=== PATIENT | male | born 1955 | race Caucasian/White ===

== ENCOUNTER 2016-12-02 17:10 | Emergency (ER) | payer OTHER ==
[2016-12-02 17:13] VITALS: RESP 18
[2016-12-02] MEDS ORDERED: ONDANSETRON 4 MG/2 ML VIAL IVP STA (19:07)
[2016-12-02] MEDS ORDERED: SODIUM CHLORIDE 0.9% 1,000 ML IV STA ×2 (19:07)
--- NOTE | 2016-12-02 19:11 | ED ---
General Adult HPI - General Chief complaint: Nausea/Vomiting/Diarrhea Stated complaint: fever, diarrhea x 3 weeks Time Seen by Provider: 12/02/16 19:01 Source: patient, RN notes reviewed Mode of arrival: ambulatory Limitations: no limitations - History of Present Illness Initial comments: Patient is 7-year-old male who presents emergency room today with chief complaint of diarrhea 3 weeks. He does admit that symptoms started 3 weeks ago while he was in [place]. States that he's been having diarrhea back and forth. He states last night felt that his abdomen was more distended. States he had increased gas. She is still passing flatulence. Patient does admit that he's noticed blood on the toilet paper and a few drops in the toilet on and off over the last 3 weeks. He does admit to increased abdominal cramping pain which is somewhat improved at this time. Admits to Nausea. He denies any complaints. Patient denies any recent fever, chills, shortness of breath, chest pain, back pain, vomiting, numbness or tingling, dysuria or hematuria, constipation, headaches or visual changes, or any other complaints. - Related Data Home Medications Medication Instructions Recorded Confirmed Losartan [Cozaar] 50 mg PO DAILY 12/02/16 12/02/16 Previous Rx's Medication Instructions Recorded Ciprofloxacin HCl [Cipro] 500 mg PO Q12HR #20 day 12/02/16 Allergies Allergy/AdvReac Type Severity Reaction Status Date / Time No Known Allergies Allergy Verified 12/02/16 19:33 Review of Systems ROS Statement: Those systems with pertinent positive or pertinent negative responses have been documented in the HPI. ROS Other: All systems not noted in ROS Statement are negative. Past Medical History Past Medical History: Hypertension History of Any Multi-Drug Resistant Organisms: None Reported Past Surgical History: Joint Replacement, Orthopedic Surgery Additional Past Surgical History / Comment(s): Bilateral partial knee replacement; Bilateral shoulder Past Psychological History: No Psychological Hx Reported Smoking Status: Former smoker Past Alcohol Use History: Heavy Past Drug Use History: None Reported General Exam - General Exam Comments Initial Comments: General: The patient is awake and alert, in no distress, and does not appear acutely ill. Eye: Pupils are equal, round and reactive to light, extra-ocular movements are intact. No nystagmus. There is normal conjunctiva bilaterally. No signs of icterus. Ears, nose, mouth and throat: There are moist mucous membranes and no oral lesions. Neck: The neck is supple, there is no tenderness or JVD. Cardiovascular: There is a regular rate and rhythm. No murmur, rub or gallop is appreciated. Respiratory: Lungs are clear to auscultation, respirations are non-labored, breath sounds are equal. No wheezes, stridor, rales, or rhonchi. Gastrointestinal: Soft, non-distended, non-tender abdomen without masses or organomegaly noted. There is no rebound or guarding present. No CVA tenderness. Bowel sounds are unremarkable. Musculoskeletal: Normal ROM, no tenderness. Strength 5/5. Sensation intact. Pulses equal bilaterally 2+. Neurological: A&O x 3. CN II-XII intact, There are no obvious motor or sensory deficits. Coordination appears grossly intact. Speech is normal. Skin: Skin is warm and dry and no rashes or lesions are noted. Psychiatric: Cooperative, appropriate mood & affect, normal judgment. Limitations: no limitations Course Vital Signs 12/02/16 12/02/16 17:11 19:23 Temperature 100.5 F H 100.7 F H Pulse Rate 85 70 Respiratory 18 18 Rate Blood Pressure 142/80 142/82 O2 Sat by Pulse 97 96 Oximetry Medical Decision Making - Medical Decision Making Patient CT reviewed and shows redemonstration of scattered air-fluid levels throughout the nondilated bowel compatible with a provided history of diarrhea. There is no evidence of obstruction. No surrounding inflammatory changes are seen. 2. Mild retroperitoneal adenopathy, which is nonspecific. Consideration would be given for testicular ultrasound, correlation with lab values and consideration for short-term follow-up as read by radiologist Dr. Mueller. Patient's labs reviewed unremarkable. Cultures of the stool currently pending. Patient will be covered for traveler's diarrhea with Cipro. Patient is advised short follow-up and further evaluation possible STD ultrasound. Advised follow-up family doctor this coming week over the next 2-4 days. Advised return here to the emergency room for any symptoms increase or worsen or for any other concerns. Patient states understanding and is in agreement. - Lab Data Result diagrams: 12/02/16 19:23 12/02/16 19:23 Lab Results 12/02/16 12/02/16 12/02/16 Range/Units 19:23 19:23 19:23 WBC 6.6 (3.8-10.6) k/uL RBC 4.79 (4.30-5.90) m/uL Hgb 14.7 (13.0-17.5) gm/dL Hct 44.1 (39.0-53.0) % MCV 92.1 (80.0-100.0) fL MCH 30.6 (25.0-35.0) pg MCHC 33.2 (31.0-37.0) g/dL RDW 12.3 (11.5-15.5) % Plt Count 219 (150-450) k/uL Neutrophils % 80 % Lymphocytes % 11 % Monocytes % 6 % Eosinophils % 2 % Basophils % 0 % Neutrophils # 5.3 (1.3-7.7) k/uL Lymphocytes # 0.7 L (1.0-4.8) k/uL Monocytes # 0.4 (0-1.0) k/uL Eosinophils # 0.1 (0-0.7) k/uL Basophils # 0.0 (0-0.2) k/uL PT (9.0-12.0) sec INR (<1.1) APTT (22.0-30.0) sec Sodium 139 (137-145) mmol/L Potassium 4.4 (3.5-5.1) mmol/L Chloride 102 (98-107) mmol/L Carbon Dioxide 26 (22-30) mmol/L Anion Gap 11 mmol/L BUN 19 (9-20) mg/dL Creatinine 0.95 (0.66-1.25) mg/dL Est GFR (MDRD) Af Amer >60 (>60 ml/min/1.73 sqM) Est GFR (MDRD) Non-Af >60 (>60 ml/min/1.73 sqM) Glucose 98 (74-99) mg/dL Plasma Lactic Acid Vu 1.0 (0.7-2.0) mmol/L Calcium 9.2 (8.4-10.2) mg/dL Total Bilirubin 0.9 (0.2-1.3) mg/dL AST 21 (17-59) U/L ALT 34 (21-72) U/L Alkaline Phosphatase 94 (38-126) U/L Total Protein 6.9 (6.3-8.2) g/dL Albumin 4.0 (3.5-5.0) g/dL Amylase 43 (30-110) U/L Lipase 38 (23-300) U/L 12/02/16 Range/Units 19:23 WBC (3.8-10.6) k/uL RBC (4.30-5.90) m/uL Hgb (13.0-17.5) gm/dL Hct (39.0-53.0) % MCV (80.0-100.0) fL MCH (25.0-35.0) pg MCHC (31.0-37.0) g/dL RDW (11.5-15.5) % Plt Count (150-450) k/uL Neutrophils % % Lymphocytes % % Monocytes % % Eosinophils % % Basophils % % Neutrophils # (1.3-7.7) k/uL Lymphocytes # (1.0-4.8) k/uL Monocytes # (0-1.0) k/uL Eosinophils # (0-0.7) k/uL Basophils # (0-0.2) k/uL PT 10.2 (9.0-12.0) sec INR 1.0 (<1.1) APTT 24.0 (22.0-30.0) sec Sodium (137-145) mmol/L Potassium (3.5-5.1) mmol/L Chloride (98-107) mmol/L Carbon Dioxide (22-30) mmol/L Anion Gap mmol/L BUN (9-20) mg/dL Creatinine (0.66-1.25) mg/dL Est GFR (MDRD) Af Amer (>60 ml/min/1.73 sqM) Est GFR (MDRD) Non-Af (>60 ml/min/1.73 sqM) Glucose (74-99) mg/dL Plasma Lactic Acid Vu (0.7-2.0) mmol/L Calcium (8.4-10.2) mg/dL Total Bilirubin (0.2-1.3) mg/dL AST (17-59) U/L ALT (21-72) U/L Alkaline Phosphatase (38-126) U/L Total Protein (6.3-8.2) g/dL Albumin (3.5-5.0) g/dL Amylase (30-110) U/L Lipase (23-300) U/L Disposition Clinical Impression: Travelers' diarrhea Disposition: HOME SELF-CARE Condition: Good Instructions: Traveler's Diarrhea (ED) Additional Instructions: Please follow-up the family doctor and discuss options of ultrasound. Please use antibiotic as prescribed. Please return to emergency room if any symptoms increase or worsen or for any other concerns. Prescriptions: Ciprofloxacin HCl [Cipro] 500 mg PO Q12HR #20 day Time of Disposition: 21:10
[2016-12-02 19:45] LABS: Basophils % (A) 0 %; CH 31.3; CHCM 34.2; Eosinophils # (A) 0.1 k/uL (0-0.7); Eosinophils % (A) 2 %; HCT 44.1 % (39.0-53.0); HDW 2.35; HGB 14.7 gm/dL (13.0-17.5); Luc # (Auto) 0.11; Luc % (Auto) 2; Lymphocytes # (A) 0.7 k/uL (1.0-4.8); Lymphocytes % (A) 11 %; MCH 30.6 pg (25.0-35.0); MCHC 33.2 g/dL (31.0-37.0); MCV 92.1 fL (80.0-100.0); Mean Platelet Volume 6.2; Monocytes # (A) 0.4 k/uL (0-1.0); Monocytes % (A) 6 %; Neutrophils # (A) 5.3 k/uL (1.3-7.7); Neutrophils % (A) 80 %; Prothrombin Time 10.2 sec (9.0-12.0); RBC 4.79 m/uL (4.30-5.90); RDW 12.3 % (11.5-15.5); WBC 6.6 k/uL (3.8-10.6); WBC (Perox) 6.74
--- NOTE | 2016-12-02 19:59 | XR ---
EXAMINATION TYPE: XR KUB DATE OF EXAM: 12/02/2016 7:39 PM COMPARISON: NONE HISTORY: Abdominal pain and diarrhea TECHNIQUE: Single frontal upright radiograph was obtained. FINDINGS: Multiple air-fluid levels are seen within nondilated bowel compatible with a history of flu id malabsorption and diarrhea. There is no evidence of organomegaly. Osseous structures appear intact . No abnormal calcifications are seen within the abdomen. No evidence of pneumoperitoneum. IMPRESSION: Nonobstructive bowel gas pattern. Air-fluid levels within nondilated bowel are compatible with a history of fluid malabsorption and diarrhea.
[2016-12-02] MEDS ORDERED: RX INFO: IV CONTRAST WAS GIVEN 1 EACH MISC MISCELLANE PRN (20:11)
[2016-12-02 20:34] LABS: ALT 34 U/L (21-72); AST 21 U/L (17-59); Alkaline Phosphatase 94 U/L (38-126); Amylase 43 U/L (30-110); Anion Gap 11 mmol/L; Blood Urea Nitrogen 19 mg/dL (9-20); Calcium 9.2 mg/dL (8.4-10.2); Carbon Dioxide 26 mmol/L (22-30); Chloride 102 mmol/L (98-107); Glucose 98 mg/dL (74-99); Non-African American GFR(MDRD) >60 (>60 ml/min/1.73 sqM); Potassium 4.4 mmol/L (3.5-5.1); Sodium 139 mmol/L (137-145); Total Bilirubin 0.9 mg/dL (0.2-1.3); Total Protein 6.9 g/dL (6.3-8.2)
--- NOTE | 2016-12-02 20:49 | CT ---
EXAMINATION TYPE: CT abdomen pelvis w con DATE OF EXAM: 12/02/2016 8:33 PM COMPARISON: NONE HISTORY: Diarrhea and fever on and off x [address] DLP: 1217.00 mGycm Automated exposure control for dose reduction was used. TECHNIQUE: Helical acquisition of images was performed from the lung bases through the pelvis. CONTRAST: Performed without Oral Contrast and with IV Contrast, patient injected with 100 mL of Omnipaque 300. FINDINGS: LUNG BASES: Multifocal subsegmental atelectasis. No focal consolidation. LIVER/GB: No significant abnormality is appreciated. PANCREAS: No significant abnormality is seen. SPLEEN: Normal morphology and enhancement. ADRENALS: No significant abnormality is seen. KIDNEYS: No significant abnormality is seen. RETROPERITONEAL ADENOPATHY: Multiple enlarged and prominent retroperitoneal periaortic lymph nodes a re present the largest of which measures 1.2 cm (paracaval and image 190). No enlarged mesenteric lym ph nodes, inguinal lymph nodes, or superficial inguinal lymph nodes are appreciated. REPRODUCTIVE ORGANS: Prostate gland is heterogenous and mildly enlarged measuring 4.9 cm in transvers e dimension. URINARY BLADDER: Partially distended with urachal remnant visualized. Otherwise unremarkable. PELVIC ADENOPATHY: None. OSSEOUS STRUCTURES: Degenerative changes of the visualized thoracolumbar and lumbosacral spine are s een as well as few scattered bone islands. Degenerative changes are also appreciated of the femoral a cetabular joints demonstrated as subchondral cysts and joint space narrowing. Probable additional tigist e and is seen of the pedicle of the L5 vertebral body on the right. BOWEL: Scattered air-fluid levels are seen within nondistended and nondilated bowel, again compatibl e with the provided history of diarrhea for 3 weeks. Appendix is within normal limits of size and con tains luminal air. No evidence of bowel obstruction or pericolonic fat stranding. OTHER: IMPRESSION 1. REDEMONSTRATION OF SCATTERED AIR-FLUID LEVELS THROUGHOUT THE NONDILATED BOWEL COMPATIBLE WITH THE PROVIDED HISTORY OF DIARRHEA. THERE IS NO EVIDENCE OF OBSTRUCTION. NO SURROUNDING INFLAMMATORY CHANGE S ARE SEEN. 2. MILD RETROPERITONEAL ADENOPATHY, WHICH IS NONSPECIFIC. CONSIDERATION SHOULD BE GIVEN FOR TESTICULA R ULTRASOUND, CORRELATION WITH LABORATORY VALUES, AND CONSIDERATION FOR SHORT-TERM FOLLOW-UP.
[2016-12-02 21:12] LABS: Appearance,Urine Clear (Clear); Bilirubin,Urine Negative (Negative); Glucose,Urine (UA) Negative (Negative); Ketones,Urine Negative (Negative); Leukocyte Esterase,Urine Negative (Negative); Nitrite,Urine Negative (Negative); PH, Urine 5.5 (5.0-8.0); Protein,Urine Trace (Negative); UA Billing (MACRO vs. MICRO) CHEM; Urobilinogen,Urine <2.0 mg/dL (<2.0)
[2016-12-02 21:26] VITALS: BP 146/74; PULSE 67; TEMP 98.2
[2016-12-09 19:56] LABS: Cryptosporidium parvum Not detected (Not detected); Isospora belli Not detected (Not detected); Microsporidium Not detected (Not detected); Routine Ova and Parasites Not detected
== END 2016-12-02 21:32 | disposition home or self-care (01) ==
LOC: EC 17:10
DX: R19.7 Diarrhea, unspecified (principal); R59.9 Enlarged lymph nodes, unspecified; I10 Essential (primary) hypertension; Z87.891 Personal history of nicotine dependence; Z79.899 Other long term (current) drug therapy
CPT/HCPCS: 36415; 80053; 82150; 83605; 83690; 85025; 85610; 85730; 82272; 81003; 87324; 87177; 87207; 87209; 87045; 89055; 87046; 74000; 74177; 99284; 96374; 96361 ×2; J2405; Q9967

== ENCOUNTER → 2019-04-14 | Outpatient (CLI) | payer OTHER ==
[2019-04-14 07:19] LABS: Basophils # (A) 0.1 k/uL (0-0.2); Basophils % (A) 1 %; Eosinophils # (A) 0.7 k/uL (0-0.7); Eosinophils % (A) 9 %; HCT 43.4 % (39.0-53.0); HGB 14.6 gm/dL (13.0-17.5); Lymphocytes # (A) 2.2 k/uL (1.0-4.8); Lymphocytes % (A) 29 %; MCH 31.7 pg (25.0-35.0); MCHC 33.6 g/dL (31.0-37.0); MCV 94.5 fL (80.0-100.0); Mean Platelet Volume 6.8; Monocytes # (A) 0.4 k/uL (0-1.0); Monocytes % (A) 6 %; Neutrophils # (A) 4.2 k/uL (1.3-7.7); Neutrophils % (A) 54 %; Platelet Count 245 k/uL (150-450); RBC 4.59 m/uL (4.30-5.90); RDW 14.5 % (11.5-15.5); WBC 7.7 k/uL (3.8-10.6)
[2019-04-14 11:30] LABS: African American GFR (CKD) 105.7 (60.0-200.0); Albumin 4.1 g/dL (3.80-4.90); Albumin/Globulin Ratio 1.95 (1.60-3.17); Anion Gap 3.5 mmol/L (4.00-12.00); BUN/Creat Ratio 16.67 Ratio (12.00-20.00); Calcium 9.2 mg/dL (8.7-10.3); Carbon Dioxide 29.5 mmol/L (21.6-31.8); Chol/HDL Ratio 2.69; Globulin 2.1 g/dL (1.6-3.3); Non-African American GFR(CKD) 91.2 (60.0-200.0); Potassium 5.1 mmol/L (3.5-5.5); Total Bilirubin 0.5 mg/dL (0.3-1.2); Total Protein 6.2 g/dL (6.2-8.2)
[2019-04-14 11:37] LABS: Hepatitis B Core IgM Non-Reactive (Non-Reactive); Hepatitis B Surface Antigen Non-Reactive (Non-Reactive); Hepatitis C IgG Antibody Non-Reactive (Non-Reactive)
[2019-04-14 11:38] LABS: T4, Free (Free Thyroxine) 1.2 ng/dL (0.80-1.80)
== END | disposition home or self-care (01) ==
LOC: LABWHC1 06:51
PROVIDERS: ATTEND Internal Medicine
DX: Z00.00 Encounter for general adult medical examination without abnormal findings (principal); E78.5 Hyperlipidemia, unspecified; I10 Essential (primary) hypertension
CPT/HCPCS: 36415; 80053; 80061; 84439; 84443; 85025; 86705; 86803; 87340

== ENCOUNTER → 2019-04-30 | Outpatient (CLI) | payer OTHER ==
--- NOTE | 2019-04-30 10:37 | CT ---
EXAMINATION TYPE: CT abdomen pelvis w con DATE OF EXAM: 04/30/2019 COMPARISON: 12/02/2016 HISTORY: 63-year-old male Enlarged lymph nodes TECHNIQUE: Contiguous axial scanning of the abdomen and pelvis following administration of 100 ml Iso alexx 300 IV contrast. Delayed images through the kidneys and coronal/sagittal reconstructions perform ed. CT DLP: 1096.8 mGycm Automated exposure control for dose reduction was used. FINDINGS: The heart is upper limits of normal in size without pericardial effusion. Coronary vessel calcificati ons are present. Strandy atelectasis inferior lingular. No pleural effusion. No focal liver lesion or biliary ductal dilatation. Portal venous system is patent. Gallbladder mildly hydropic and 4.0 cm wide without surrounding inflammatory change. Adrenal glands, kidneys, spleen, and pancreas appear within normal limits. No dilated small bowel, free fluid, or free air. Oral contrast progressed to the distal transverse colon. Sigmoid diverticulosis without pericolonic i nflammatory change. Normal appendix. Scattered borderline and mildly enlarged retroperitoneal lymph nodes. These measure up to 7 mm in the aortocaval region, 7 mm upper left periaortic region, 8 mm lower left periaortic region, 9 mm left c ommon iliac chain, 1 cm retrocaval region. These are unchanged. Also unchanged 7 mm mid mesenteric lymph node and additional scattered prominent but nonenlarged mese nteric lymph nodes throughout. Bladder incompletely distended. Prostate gland measures 5.1 cm wide. No abnormal fluid collection in the pelvis. External iliac chain lymph nodes measure up to 8 mm. Bones: Mild degenerative changes at the hips. Facet arthropathy lower lumbar spine. Endplate spondylo sis lower thoracic spine. IMPRESSION: 1. BORDERLINE AND MILDLY ENLARGED RETROPERITONEAL LYMPH NODES MEASURING UP TO 1 CM ARE STABLE BACK TO 2017 SUGGESTING A CHRONIC POSTINFLAMMATORY ETIOLOGY. AN INDOLENT NEOPLASTIC PROCESS IS CONSIDERED LE SS LIKELY GIVEN OVER 2 YEARS OF STABILITY. CONSIDER ANNUAL SURVEILLANCE. 2. MILDLY HYDROPIC GALLBLADDER AT 4 CM WIDE LIKELY DUE TO FASTING STATE. CLINICALLY CORRELATE. IF RIG HT UPPER QUADRANT PAIN OR CONCERN FOR EARLY ACUTE CHOLECYSTITIS, FOLLOW-UP ULTRASOUND OR HIDA SCAN. 3. MILD SIGMOID DIVERTICULOSIS.
== END | disposition home or self-care (01) ==
LOC: RADCTMAIN 07:07
PROVIDERS: ATTEND Internal Medicine Critical Care Medicine
DX: K57.30 Diverticulosis of large intestine without perforation or abscess without bleeding (principal); R59.0 Localized enlarged lymph nodes
CPT/HCPCS: 74177; Q9967

== ENCOUNTER 2021-05-10 18:59 | Emergency (ER) | payer BC ==
[2021-05-10 19:33] VITALS: BP 165/81; PULSE 63; RESP 18; TEMP 98.5
--- NOTE | 2021-05-10 20:14 | ED ---
Lower Extremity Injury HPI - General Chief Complaint: Extremity Injury, Lower Stated Complaint: lt knee infection Time Seen by Provider: 05/10/21 19:56 Source: patient, RN notes reviewed Mode of arrival: ambulatory Limitations: no limitations - History of Present Illness Initial Comments: 65-year-old white male, alert and oriented 4 and well-appearing, presents to the emergency room with left knee tenderness. Patient states that he noticed a small, what he thought was a pimple on the left knee and tried to squeeze it. It is tender with increased redness and swelling. He denies any fevers nausea or vomiting. He denies any injuries. He states that his tetanus shot is up-to-date. MD Complaint: other (Left knee tenderness) -: days(s) (1) Type of Injury: unknown Severity scale (1-10): 4 Worsens With: palpation - Related Data Home Medications Medication Instructions Recorded Confirmed Losartan [Cozaar] 50 mg PO DAILY 12/02/16 12/02/16 Previous Rx's Medication Instructions Recorded Ciprofloxacin HCl [Cipro] 500 mg PO Q12HR #20 day 12/02/16 Cephalexin [Keflex] 500 mg PO Q6HR 7 Days #28 cap 05/10/21 Allergies Allergy/AdvReac Type Severity Reaction Status Date / Time No Known Allergies Allergy Verified 05/10/21 19:33 Review of Systems ROS Statement: Those systems with pertinent positive or pertinent negative responses have been documented in the HPI. ROS Other: All systems not noted in ROS Statement are negative. Past Medical History Past Medical History: Hypertension History of Any Multi-Drug Resistant Organisms: None Reported Past Surgical History: Joint Replacement, Orthopedic Surgery Additional Past Surgical History / Comment(s): Bilateral partial knee replacement; Bilateral shoulder Past Psychological History: No Psychological Hx Reported Smoking Status: Smoker, current status unknown Past Alcohol Use History: Heavy Past Drug Use History: None Reported General Exam Limitations: no limitations General appearance: alert, in no apparent distress Head exam: Present: atraumatic, normocephalic, normal inspection Eye exam: Present: normal appearance, PERRL, EOMI. Absent: scleral icterus, c onjunctival injection, periorbital swelling Neck exam: Present: normal inspection, full ROM. Absent: tenderness, meningismus, lymphadenopathy Respiratory exam: Present: normal lung sounds bilaterally. Absent: respiratory distress, wheezes, rales, rhonchi, stridor Cardiovascular Exam: Present: regular rate, normal rhythm, normal heart sounds. Absent: systolic murmur, diastolic murmur, rubs, gallop, clicks GI/Abdominal exam: Present: soft, normal bowel sounds. Absent: distended, tenderness, guarding, rebound, rigid Left Knee exam: Present: full ROM, tenderness, erythema (Approximately 4 cm circular area of erythema lateral patella), full knee extension Neurovascular tendon exam: Present: no vascular compromise. Absent: abnormal cap refill, extremity cold to touch, pallor Back exam: Present: full ROM. Absent: tenderness, CVA tenderness (R), CVA tenderness (L) Neurological exam: Present: alert, oriented X3, CN II-XII intact Psychiatric exam: Present: normal affect, normal mood Skin exam: Present: warm, dry, intact, normal color. Absent: rash Course Vital Signs 05/10/21 19:29 Temperature 98.5 F Pulse Rate 63 Respiratory 18 Rate Blood Pressure 165/81 O2 Sat by Pulse 98 Oximetry Medical Decision Making - Medical Decision Making Patient has a 4 cm circular area of erythema to the left lateral patella that developed today. He states it looked like a pimple that he tried to squeeze and became erythematous and tender to touch. He'll be treated with Keflex and directed to follow up with his primary care doctor. He has full extension of the knee. Denies any trauma. He states his tetanus shot is up-to-date. He denies any systemic signs including nausea vomiting diarrhea or fevers. Disposition Clinical Impression: Cellulitis Disposition: HOME SELF-CARE Condition: Good Instructions (If sedation given, give patient instructions): Cellulitis (ED) Additional Instructions: Take antibiotics as prescribed and follow-up with your primary care doctor next week. Return to the emergency room with any new or worsening symptoms including increased pain, fevers or nausea and vomiting. Prescriptions: Cephalexin [Keflex] 500 mg PO Q6HR 7 Days #28 cap Is patient prescribed a controlled substance at d/c from ED?: No Referrals: Bruce Collier MD [Primary Care Provider] - 1-2 days Time of Disposition: 20:14
== END 2021-05-10 20:25 | disposition home or self-care (01) ==
LOC: EC 18:59
DX: L03.116 Cellulitis of left lower limb (principal); I10 Essential (primary) hypertension; F17.200 Nicotine dependence, unspecified, uncomplicated; Z79.899 Other long term (current) drug therapy
CPT/HCPCS: 99283

== ENCOUNTER → 2021-05-19 | Outpatient (CLI) | payer BC ==
[2021-05-19 15:03] LABS: Basophils # (A) 0.06 X 10*3/uL (0.00-0.10); Basophils % (A) 0.7 %; HGB 13.9 g/dL (13.0-17.0); Lymphocytes # (A) 1.79 X 10*3/uL (0.90-5.00); Lymphocytes % (A) 21.2 %; MCH 31.9 pg (27.0-32.0); MCHC 33.1 g/dL (32.0-37.0); MCV 96.3 fL (80.0-97.0); Mean Platelet Volume 9.1 fL (9.5-12.2); Monocytes # (A) 0.62 X 10*3/uL (0.20-1.00); Monocytes % (A) 7.3 %; Neutrophils # (A) 4.84 X 10*3/uL (1.80-7.70); Neutrophils % (A) 57.4 %; Platelet Count 273 X 10*3/uL (140-440); RBC 4.36 X 10*6/uL (4.40-5.60); RDW 11.8 % (11.5-14.5); WBC 8.44 X 10*3/uL (4.50-10.00)
[2021-05-20 02:45] LABS: African American GFR (CKD) 104.2 (60.0-200.0); Albumin 4.4 g/dL (3.80-4.90); Anion Gap 10.5 mmol/L (4.00-12.00); BUN/Creat Ratio 18.89 Ratio (12.00-20.00); Calcium 9.4 mg/dL (8.7-10.3); Carbon Dioxide 24.5 mmol/L (21.6-31.8); Chol/HDL Ratio 2.25; Globulin 2.2 g/dL (1.6-3.3); LDL Cholesterol,Calculated 71.4 mg/dL (0.0-131.0); Non-African American GFR(CKD) 89.9 (60.0-200.0); Potassium 4.8 mmol/L (3.5-5.5); Total Bilirubin 0.2 mg/dL (0.3-1.2); Total Protein 6.6 g/dL (6.2-8.2); VLDL Calculation 18.6 mg/dL (5.00-40.00)
[2021-05-20 02:53] LABS: Prostate Specific Antigen 1.4 ng/mL (0.0-4.5); T4, Free (Free Thyroxine) 1.2 ng/dL (0.80-1.80)
== END | disposition home or self-care (01) ==
LOC: LABWHC1 08:34
PROVIDERS: ATTEND Internal Medicine
DX: Z00.00 Encounter for general adult medical examination without abnormal findings (principal); E78.5 Hyperlipidemia, unspecified
CPT/HCPCS: 36415; 80053; 80061; 84153; 84439; 84443; 85025

== ENCOUNTER → 2021-06-03 | Outpatient (CLI) | payer BC | END | disposition home or self-care (01) | LOC: LABMAIN 12:42 | PROVIDERS: ATTEND Emergency Medicine | DX: Z20.822 Contact with and (suspected) exposure to COVID-19 (principal) | CPT/HCPCS: 87636 ==

== ENCOUNTER → 2021-06-29 | Outpatient (CLI) | payer BC ==
--- NOTE | 2021-06-30 05:32 | MR ---
EXAMINATION TYPE: MR shoulder RT wo con DATE OF EXAM: 06/29/2021 COMPARISON: None HISTORY: Right shoulder pain x 3 mos. There is narrowing of the glenohumeral joint space. There is hypertrophic spurring at the AC joint. T here is mild subacromial impingement. There is mild thickening and increased signal in the supraspina tus tendon. There are small areas of full-thickness tear in the supraspinatus tendon. There is a smal l subdeltoid effusion. There is shoulder joint effusion. There are degenerative cysts in the humeral head at the greater tuberosity. There is large spur on the inferior humeral head measuring 23 x 6 mm. There is some thickening and increased signal in the subscapularis tendon. The biceps tendon is intac t. There is no evidence of a fracture. IMPRESSION: Small full-thickness tear of the supraspinatus tendon. Shoulder joint effusion and subdeltoid effusio n. Partial tear of the subscapularis tendon. 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 No evidence of retraction of the supraspinatus tendon. Moderate hypertrophic spur ring at the AC joint
== END | disposition home or self-care (01) ==
LOC: RADMRIMAIN 20:55
PROVIDERS: ATTEND Orthopaedic Surgery
DX: M75.121 Complete rotator cuff tear or rupture of right shoulder, not specified as traumatic (principal); M75.111 Incomplete rotator cuff tear or rupture of right shoulder, not specified as traumatic; M19.011 Primary osteoarthritis, right shoulder

== ENCOUNTER 2021-08-07 15:43 | Emergency (ER) | payer BC ==
[2021-08-07 16:28] VITALS: RESP 18
[2021-08-07] MEDS ORDERED: KETOROLAC 30 MG/ML 1 ML VIAL IVP STA (16:46)
[2021-08-07] MEDS ORDERED: SODIUM CHLORIDE 0.9% 1,000 ML IV STA (16:46)
[2021-08-07] MEDS ORDERED: ASPIRIN 81 MG PO STA (16:46)
--- NOTE | 2021-08-07 16:56 | ED ---
General Adult HPI - General Chief complaint: Shortness of Breath Stated complaint: KIANNA,Post Surgical,Confusion Time Seen by Provider: 08/07/21 16:34 Source: patient, RN notes reviewed, old records reviewed Mode of arrival: ambulatory Limitations: no limitations - History of Present Illness Initial comments: I evaluated the patient when he was placed in a room. Patient is a 65-year-old male who presents emergency Department complaining of shortness of breath. Medical history included hypertension. Patient states it is been on oxycodone since a right shoulder surgery last week. He was constipated, but had a bowel movement yesterday. He states that prior to the bowel movement, he was feeling extremely bloated which resolved after bowel movement. However since yesterday, he is having some mild shortness of breath, but he thinks is related to e xertion. He is complaining of a nonspecific chest discomfort that he is having a difficult time explaining and describing type and location. Also complains of mild epigastric abdominal discomfort. He denies any nausea or vomiting. Denies any diarrhea. Denies any blood in his stool. Denies any history of blood clots in himself or family members. He has been lying around more than atypically d oes secondary to his recent shoulder surgery. He isn't sure if his symptoms are related to the medication he is on, however states of a concern which is why presents emergency department today. Symptoms started last night. Family states is abdominal discomfort is resolved, I also discussed complaining of some mild pleuritic chest discomfort on deep inspiration. Patient was vaccinated for COVID-19 with [employer]. He denies any fevers, productive cough. Has no other acute complaints at this time. His only other complaint is a "foggy" sensation he gets when he takes his oxycodone that resolves as it wears off. He thinks it is likely related to the medication. Currently does not feel this way. - Related Data Home Medications Medication Instructions Recorded Confirmed Losartan [Cozaar] 50 mg PO DAILY 12/02/16 08/07/21 Latanoprost [Xalatan 0.005%] 1 drop BOTH EYES HS 08/07/21 08/07/21 oxyCODONE-APAP 5-325MG [Percocet 1 tab PO Q4H PRN 08/07/21 08/07/21 5-325 mg] Allergies Allergy/AdvReac Type Severity Reaction Status Date / Time No Known Allergies Allergy Verified 08/07/21 17:46 Review of Systems ROS Statement: Those systems with pertinent positive or pertinent negative responses have been documented in the HPI. Review of Systems: CONST: Denies fever EYES: Denies blurry vision ENT: Denies nasal congestion C/V: Endorses chest pain RESP: Endorses mild shortness of breath GI: Denies abdominal pain : Denies dysuria SKIN: Denies rash. MSK: Denies joint pain. NEURO: Denies headache ROS Other: All systems not noted in ROS Statement are negative. Past Medical History Past Medical History: Hypertension History of Any Multi-Drug Resistant Organisms: None Reported Past Surgical History: Joint Replacement, Orthopedic Surgery Additional Past Surgical History / Comment(s): Bilateral partial knee replacement; Bilateral shoulder Past Psychological History: No Psychological Hx Reported Smoking Status: Smoker, current status unknown Past Alcohol Use History: Heavy Past Drug Use History: None Reported General Exam - General Exam Comments Initial Comments: General: Appears in no acute distress. HEAD: Normal with no signs of head trauma. EYES: PERRLA, EOMI, conjunctiva normal, no discharge. Pupils are 3 mm and equal bilaterally. ENT: Hearing grossly intact, normal oropharynx. RESPIRATORY: Clear breath sounds bilaterally. No wheezes, rales, or rhonchi. C/V: Regular rate and rhythm. S1 and S2 auscultated, no edema, peripheral pulses 2+ and intact throughout. ABD: Abd is soft, nontender, nondistended EXT: Normal range of motion, no obvious deformity SKIN: No rashes or lesions observed on exposed skin. NEURO: Alert and oriented x 4. Cranial nerves II-XII intact. No focal sensory or strength deficits. Limitations: no limitations Course Vital Signs 08/07/21 08/07/21 16:20 16:28 Temperature 99.2 F Pulse Rate 74 Respiratory 18 18 Rate Blood Pressure 138/83 O2 Sat by Pulse 97 Oximetry Medical Decision Making - Medical Decision Making Based on the patient's presentation and physical exam, I'm concerned for possible cardiopulmonary cause for his current symptoms. Patient does not PERC out. Well's score for PE is low at 1.5. Therefore we will obtain a cardiac workup including EKG, troponin, basic labs, abdominal labs, d-dimer. EKG, chest x-ray, abdominal x-ray will also be obtained. Patient was in agreement this plan. He will be administered Toradol for analgesia as well as aspirin. Patient will be placed on a monitoring specialist. COVID-19 swab also be obtained. He was in agreement with this plan. EKG showed no signs of acute ischemia. Chest x-ray showed no acute cardio pulmonary process. Abdominal x-ray showed a nonobstructive bowel gas pattern with stool present. There were trace studies were remarkable for a d-dimer that is within normal limits. Troponin is negative. Covid swab is negative. Remainder of the labs are unremarkable. On reevaluation, patient is feeling improved. Vital signs remained within normal limits and stable. I updated him on the results of his imaging as well as laboratory studies. His symptoms likely are secondary to mild constipation secondary to new oxycodone use. He just started taking stool softeners yesterday, and I recommended to continue using those and offered him an enema which he refuses at this time. I did advise that he can purchase [id number] and he expressed understanding. He already has stool softeners at home. I advised that he try to reduce the use of his opiate medication and possibly spaces out, using ibuprofen and supplemental analgesia. He was in agreement with this plan. At this time I believe that it is safe for him to be discharged home as he does have follow-up with the surgeon on Sunday. He was in agreement this plan. I instructed the patient to follow up with their PCP in the next 3 days. I explained that the patient should return to the emergency department if they experience any worsening symptoms. Strict return precautions were discussed with the patient. The patient expressed understanding of these instructions. I answered all questions that the patient had. The patient was discharged home in good condition with their prescriptions and follow up information. - Lab Data Result diagrams: 08/07/21 17:06 08/07/21 17:06 Lab Results 08/07/21 08/07/21 08/07/21 Range/Units 17:06 17:06 17:06 WBC 10.5 (3.8-10.6) k/uL RBC 4.36 (4.30-5.90) m/uL Hgb 14.3 (13.0-17.5) gm/dL Hct 40.5 (39.0-53.0) % MCV 92.8 (80.0-100.0) fL MCH 32.7 (25.0-35.0) pg MCHC 35.3 (31.0-37.0) g/dL RDW 11.4 L (11.5-15.5) % Plt Count 233 (150-450) k/uL MPV 6.9 Neutrophils % 69 % Lymphocytes % 13 % Monocytes % 8 % Eosinophils % 8 % Basophils % 1 % Neutrophils # 7.2 (1.3-7.7) k/uL Lymphocytes # 1.4 (1.0-4.8) k/uL Monocytes # 0.9 (0-1.0) k/uL Eosinophils # 0.8 H (0-0.7) k/uL Basophils # 0.1 (0-0.2) k/uL PT 9.5 (9.0-12.0) sec INR 0.9 (<1.2) APTT 23.4 (22.0-30.0) sec D-Dimer 0.54 (<0.60) mg/L FEU Sodium 133 L (137-145) mmol/L Potassium 4.6 (3.5-5.1) mmol/L Chloride 97 L (98-107) mmol/L Carbon Dioxide 25 (22-30) mmol/L Anion Gap 11 mmol/L BUN 16 (9-20) mg/dL Creatinine 0.83 (0.66-1.25) mg/dL Est GFR (CKD-EPI)AfAm >90 (>60 ml/min/1.73 sqM) Est GFR (CKD-EPI)NonAf >90 (>60 ml/min/1.73 sqM) Glucose 142 H (74-99) mg/dL Calcium 9.5 (8.4-10.2) mg/dL Magnesium 2.0 (1.6-2.3) mg/dL Total Bilirubin 0.7 (0.2-1.3) mg/dL AST 20 (17-59) U/L ALT 20 (4-49) U/L Alkaline Phosphatase 79 (38-126) U/L Troponin I (0.000-0.034) ng/mL Total Protein 7.0 (6.3-8.2) g/dL Albumin 4.1 (3.5-5.0) g/dL Amylase 57 (30-110) U/L Lipase 48 (23-300) U/L Coronavirus (PCR) (Not Detectd) 08/07/21 08/07/21 Range/Units 17:06 17:06 WBC (3.8-10.6) k/uL RBC (4.30-5.90) m/uL Hgb (13.0-17.5) gm/dL Hct (39.0-53.0) % MCV (80.0-100.0) fL MCH (25.0-35.0) pg MCHC (31.0-37.0) g/dL RDW (11.5-15.5) % Plt Count (150-450) k/uL MPV Neutrophils % % Lymphocytes % % Monocytes % % Eosinophils % % Basophils % % Neutrophils # (1.3-7.7) k/uL Lymphocytes # (1.0-4.8) k/uL Monocytes # (0-1.0) k/uL Eosinophils # (0-0.7) k/uL Basophils # (0-0.2) k/uL PT (9.0-12.0) sec INR (<1.2) APTT (22.0-30.0) sec D-Dimer (<0.60) mg/L FEU Sodium (137-145) mmol/L Potassium (3.5-5.1) mmol/L Chloride (98-107) mmol/L Carbon Dioxide (22-30) mmol/L Anion Gap mmol/L BUN (9-20) mg/dL Creatinine (0.66-1.25) mg/dL Est GFR (CKD-EPI)AfAm (>60 ml/min/1.73 sqM) Est GFR (CKD-EPI)NonAf (>60 ml/min/1.73 sqM) Glucose (74-99) mg/dL Calcium (8.4-10.2) mg/dL Magnesium (1.6-2.3) mg/dL Total Bilirubin (0.2-1.3) mg/dL AST (17-59) U/L ALT (4-49) U/L Alkaline Phosphatase (38-126) U/L Troponin I <0.012 (0.000-0.034) ng/mL Total Protein (6.3-8.2) g/dL Albumin (3.5-5.0) g/dL Amylase (30-110) U/L Lipase (23-300) U/L Coronavirus (PCR) Not Detected (Not Detectd) - EKG Data -: EKG Interpreted by Me EKG Comments: 12-lead Electrocardiogram Interpretation Note EKG was reviewed and interpreted by myself. 12-lead ECG performed at 1653 is interpreted by me as revealing normal sinus rhythm at a rate of 67 beats per minute. [place] is normal. [place] interval is 160 ms, QRS duration is 106 ms, QTc is 420 ms.. There is an isolated mild T-wave inversion in lead III. Q wave is deep and III. There is an S wave present in I. No other ST segment or T-wave abnormalities.. R wave progression across the precordium was satisfactory. By my interpretation this EKG is non-diagnostic for acute ischemia. Disposition Clinical Impression: Constipation, Opiate use Disposition: HOME SELF-CARE Condition: Fair Instructions (If sedation given, give patient instructions): Constipation (ED) Is patient prescribed a controlled substance at d/c from ED?: No Referrals: Bruce Collier MD [Primary Care Provider] - 1-2 days
[2021-08-07 17:35] LABS: INR 0.9 (<1.2); Partial Thromboplastin Time 23.4 sec (22.0-30.0); Prothrombin Time 9.5 sec (9.0-12.0)
--- NOTE | 2021-08-07 17:41 | XR ---
EXAMINATION TYPE: XR abdomen 1V DATE OF EXAM: 08/07/2021 5:26 PM CLINICAL HISTORY: Abdominal discomfort TECHNIQUE: Upright images of the abdomen and pelvis were obtained COMPARISON: 12/02/2016. FINDINGS: Nonobstructive bowel gas pattern. Diffuse large and small bowel gaseous distention without dilatation. No pneumoperitoneum, although there is incomplete visualization of the right hemidiaphrag m. Degenerative changes of the spine. IMPRESSION: Nonobstructive bowel gas pattern.
--- NOTE | 2021-08-07 17:43 | XR ---
EXAMINATION TYPE: XR chest 2V DATE OF EXAM: 08/07/2021 CLINICAL HISTORY: Chest Pain. TECHNIQUE: Frontal and lateral view of the chest. COMPARISON: 08/30/2014 FINDINGS: Patient unable to move right arm due to right shoulder postoperative state, which limits v isualization of the lungs on lateral view. The cardiomediastinal silhouette is within normal limits f or size. Pulmonary vasculature is normal. Minimal left basilar atelectasis. Otherwise no focal air sp jelly opacity. No pleural effusion. No pneumothorax seen. No acute displaced osseous fracture. IMPRESSION: No acute cardiopulmonary process.
[2021-08-07 17:44] LABS: ALT 20 U/L (4-49); AST 20 U/L (17-59); African American GFR (CKD) >90 (>60 ml/min/1.73 sqM); Albumin 4.1 g/dL (3.5-5.0); Alkaline Phosphatase 79 U/L (38-126); Amylase 57 U/L (30-110); Anion Gap 11 mmol/L; Blood Urea Nitrogen 16 mg/dL (9-20); Calcium 9.5 mg/dL (8.4-10.2); Carbon Dioxide 25 mmol/L (22-30); Chloride 97 mmol/L (98-107); Glucose 142 mg/dL (74-99); Lipase 48 U/L (23-300); Non-African American GFR(CKD) >90 (>60 ml/min/1.73 sqM); Potassium 4.6 mmol/L (3.5-5.1); Sodium 133 mmol/L (137-145); Total Bilirubin 0.7 mg/dL (0.2-1.3)
[2021-08-07 17:53] LABS: Basophils # (A) 0.1 k/uL (0-0.2); Basophils % (A) 1 %; Eosinophils # (A) 0.8 k/uL (0-0.7); Eosinophils % (A) 8 %; HCT 40.5 % (39.0-53.0); HGB 14.3 gm/dL (13.0-17.5); Lymphocytes # (A) 1.4 k/uL (1.0-4.8); Lymphocytes % (A) 13 %; MCH 32.7 pg (25.0-35.0); MCHC 35.3 g/dL (31.0-37.0); MCV 92.8 fL (80.0-100.0); Mean Platelet Volume 6.9; Monocytes # (A) 0.9 k/uL (0-1.0); Monocytes % (A) 8 %; Neutrophils # (A) 7.2 k/uL (1.3-7.7); Neutrophils % (A) 69 %; Platelet Count 233 k/uL (150-450); RBC 4.36 m/uL (4.30-5.90); RDW 11.4 % (11.5-15.5); WBC 10.5 k/uL (3.8-10.6)
[2021-08-07 18:57] VITALS: BP 141/75; PULSE 62; TEMP 98
== END 2021-08-07 18:56 | disposition home or self-care (01) ==
LOC: EC 15:43
DX: K59.00 Constipation, unspecified (principal); F11.90 Opioid use, unspecified, uncomplicated; I10 Essential (primary) hypertension; F17.200 Nicotine dependence, unspecified, uncomplicated; Z96.653 Presence of artificial knee joint, bilateral; Z20.822 Contact with and (suspected) exposure to COVID-19
CPT/HCPCS: 99285; 96374; 96361; 36415; 93005; 85379; 80053; 82150; 83690; 83735; 84484; 85025; 85610; 85730; 87635; 71046; 74018; J1885

== ENCOUNTER 2021-12-01 04:02 | Emergency (ER) | payer BC ==
[2021-12-01 04:07] VITALS: RESP 18
[2021-12-01 05:01] LABS: Basophils % (A) 0 %; Eosinophils # (A) 0.6 k/uL (0-0.7); Eosinophils % (A) 5 %; HCT 41.1 % (39.0-53.0); Lymphocytes # (A) 1.6 k/uL (1.0-4.8); Lymphocytes % (A) 13 %; MCH 32.9 pg (25.0-35.0); MCHC 33.9 g/dL (31.0-37.0); MCV 96.9 fL (80.0-100.0); Mean Platelet Volume 6.8; Monocytes # (A) 0.6 k/uL (0-1.0); Monocytes % (A) 5 %; Neutrophils # (A) 9.6 k/uL (1.3-7.7); Neutrophils % (A) 76 %; Platelet Count 245 k/uL (150-450); RBC 4.24 m/uL (4.30-5.90); RDW 12.8 % (11.5-15.5); WBC 12.6 k/uL (3.8-10.6)
--- NOTE | 2021-12-01 05:04 | ED ---
Abdominal Pain HPI - General Chief Complaint: Abdominal Pain Stated Complaint: Abd Pain Time Seen by Provider: 12/01/21 04:27 Source: patient Mode of arrival: ambulatory Limitations: no limitations - History of Present Illness MD Complaint: abdominal pain Onset/Timin -: days(s) Location: suprapubic Radiation: none Migration to: no migration Severity: moderate Quality: cramping, fullness Consistency: constant Improves With: nothing Worsens With: nothing Associated Symptoms: diarrhea - Related Data Home Medications Medication Instructions Recorded Confirmed Losartan [Cozaar] 50 mg PO DAILY 12/02/16 08/07/21 Latanoprost [Xalatan 0.005%] 1 drop BOTH EYES HS 08/07/21 08/07/21 oxyCODONE-APAP 5-325MG [Percocet 1 tab PO Q4H PRN 08/07/21 08/07/21 5-325 mg] Previous Rx's Medication Instructions Recorded Amoxicillin/Potassium Clav 1 tab PO Q12HR 1 Days #14 tab 12/01/21 [Augmentin 875-125 Tablet] Allergies Allergy/AdvReac Type Severity Reaction Status Date / Time No Known Allergies Allergy Verified 12/01/21 04:07 Review of Systems ROS Statement: Those systems with pertinent positive or pertinent negative responses have been documented in the HPI. ROS Other: All systems not noted in ROS Statement are negative. Constitutional: Denies: fever, chills Respiratory: Denies: cough, dyspnea Cardiovascular: Denies: chest pain, palpitations, orthopnea, edema, syncope Gastrointestinal: Reports: as per HPI, abdominal pain, nausea, diarrhea. Denies: vomiting, constipation, melena, hematochezia Genitourinary: Denies: dysuria, hematuria Musculoskeletal: Denies: back pain Skin: Denies: rash Neurological: Denies: headache, weakness Past Medical History Past Medical History: Hypertension History of Any Multi-Drug Resistant Organisms: None Reported Past Surgical History: Joint Replacement, Orthopedic Surgery Additional Past Surgical History / Comment(s): Bilateral partial knee replacement; Bilateral shoulder Past Psychological History: No Psychological Hx Reported Smoking Status: Smoker, current status unknown Past Alcohol Use History: Heavy Past Drug Use History: None Reported General Exam Limitations: no limitations General appearance: alert, in no apparent distress Head exam: Present: atraumatic, normocephalic Eye exam: Present: normal appearance. Absent: scleral icterus, conjunctival injection Neck exam: Present: normal inspection Respiratory exam: Present: normal lung sounds bilaterally. Absent: respiratory distress, wheezes, rales, rhonchi, stridor Cardiovascular Exam: Present: regular rate, normal rhythm, normal heart sounds. Absent: systolic murmur, diastolic murmur, rubs, gallop GI/Abdominal exam: Present: soft, tenderness. Absent: distended, guarding, rebound, rigid, mass, pulsatile mass, hernia Extremities exam: Present: normal inspection, normal capillary refill. Absent: pedal edema, calf tenderness Back exam: Present: normal inspection. Absent: CVA tenderness (R), CVA tenderness (L) Neurological exam: Present: alert Skin exam: Present: warm, dry, intact, normal color. Absent: rash Course Vital Signs 12/01/21 12/01/21 12/01/21 04:03 04:44 05:50 Temperature 99.4 F Pulse Rate 72 89 91 Respiratory 18 18 18 Rate Blood Pressure 170/87 139/90 155/82 O2 Sat by Pulse 97 98 98 Oximetry Medical Decision Making - Lab Data Result diagrams: 12/01/21 04:44 12/01/21 04:44 Lab Results 12/01/21 12/01/21 12/01/21 Range/Units 04:44 04:44 05:32 WBC 12.6 H (3.8-10.6) k/uL RBC 4.24 L (4.30-5.90) m/uL Hgb 14.0 (13.0-17.5) gm/dL Hct 41.1 (39.0-53.0) % MCV 96.9 (80.0-100.0) fL MCH 32.9 (25.0-35.0) pg MCHC 33.9 (31.0-37.0) g/dL RDW 12.8 (11.5-15.5) % Plt Count 245 (150-450) k/uL MPV 6.8 Neutrophils % 76 % Lymphocytes % 13 % Monocytes % 5 % Eosinophils % 5 % Basophils % 0 % Neutrophils # 9.6 H (1.3-7.7) k/uL Lymphocytes # 1.6 (1.0-4.8) k/uL Monocytes # 0.6 (0-1.0) k/uL Eosinophils # 0.6 (0-0.7) k/uL Basophils # 0.0 (0-0.2) k/uL Sodium 134 L (137-145) mmol/L Potassium 4.6 (3.5-5.1) mmol/L Chloride 102 (98-107) mmol/L Carbon Dioxide 25 (22-30) mmol/L Anion Gap 7 mmol/L BUN 12 (9-20) mg/dL Creatinine 0.79 (0.66-1.25) mg/dL Est GFR (CKD-EPI)AfAm >90 (>60 ml/min/1.73 sqM) Est GFR (CKD-EPI)NonAf >90 (>60 ml/min/1.73 sqM) Glucose 111 H (74-99) mg/dL Calcium 9.1 (8.4-10.2) mg/dL Total Bilirubin 1.0 (0.2-1.3) mg/dL AST 22 (17-59) U/L ALT 25 (4-49) U/L Alkaline Phosphatase 90 (38-126) U/L C-Reactive Protein 4.7 H (<1.0) mg/dL Total Protein 6.8 (6.3-8.2) g/dL Albumin 3.9 (3.5-5.0) g/dL Amylase 54 (30-110) U/L Lipase 51 (23-300) U/L Urine Color Yellow Urine Appearance Clear (Clear) Urine pH 7.0 (5.0-8.0) Ur Specific [place] 1.018 (1.001-1.035) Urine Protein Negative (Negative) Urine Glucose (UA) Negative (Negative) Urine Ketones Negative (Negative) Urine Blood Negative (Negative) Urine Nitrite Negative (Negative) Urine Bilirubin Negative (Negative) Urine Urobilinogen <2.0 (<2.0) mg/dL Ur Leukocyte Esterase Negative (Negative) Disposition Clinical Impression: Diverticulitis Disposition: HOME SELF-CARE Condition: Good Instructions (If sedation given, give patient instructions): Diverticulitis (DC) Prescriptions: Amoxicillin/Potassium Clav [Augmentin 875-125 Tablet] 1 tab PO Q12HR 1 Days #14 tab Is patient prescribed a controlled substance at d/c from ED?: No Referrals: Bruce Collier MD [Primary Care Provider] - 1-2 days
[2021-12-01 05:14] LABS: ALT 25 U/L (4-49); AST 22 U/L (17-59); African American GFR (CKD) >90 (>60 ml/min/1.73 sqM); Albumin 3.9 g/dL (3.5-5.0); Alkaline Phosphatase 90 U/L (38-126); Amylase 54 U/L (30-110); Anion Gap 7 mmol/L; Blood Urea Nitrogen 12 mg/dL (9-20); C Reactive Protein 4.7 mg/dL (<1.0); Calcium 9.1 mg/dL (8.4-10.2); Carbon Dioxide 25 mmol/L (22-30); Chloride 102 mmol/L (98-107); Glucose 111 mg/dL (74-99); Lipase 51 U/L (23-300); Non-African American GFR(CKD) >90 (>60 ml/min/1.73 sqM); Potassium 4.6 mmol/L (3.5-5.1); Sodium 134 mmol/L (137-145); Total Protein 6.8 g/dL (6.3-8.2)
--- NOTE | 2021-12-01 05:16 | CT ---
EXAMINATION TYPE: CT abdomen pelvis wo con DATE OF EXAM: 12/01/2021 COMPARISON: 04/30/2019 HISTORY: Lower Abd. pain CT DLP: 725.8 mGycm Automated exposure control for dose reduction was used. Images obtained from the diaphragm to the floor the pelvis without contrast. Lung bases are clear of infiltrate. There is no pleural effusion. There is some atelectasis at the darius ng bases. Liver spleen pancreas gallbladder appear intact. The bile ducts are not dilated. There is no adrenal mass. Kidneys show normal size and contour. There is no hydronephrosis. Ureters are not dilated. Ther e is no retroperitoneal adenopathy. Appendix is medial and appears normal. There is fat stranding in the mid sigmoid colon with wall thickening. There is sigmoid diverticulosis . No free air. No drainable fluid collection. Bladder distends smoothly. There is no inguinal hernia. No evidence of a pelvic mass. The lumbar vertebrae have normal alignment. Posterior elements are intact. There is no compression fr acture. Bony pelvis is intact. Hip joints are intact. IMPRESSION: Sigmoid diverticulitis. This appears new compared to old exam. Normal appendix.
[2021-12-01 05:39] LABS: Appearance,Urine Clear (Clear); Bilirubin,Urine Negative (Negative); Blood,Urine Negative (Negative); Color,Urine Yellow; Glucose,Urine (UA) Negative (Negative); Ketones,Urine Negative (Negative); Leukocyte Esterase,Urine Negative (Negative); Nitrite,Urine Negative (Negative); Protein,Urine Negative (Negative); Specific Gravity,Urine 1.018 (1.001-1.035); Urobilinogen,Urine <2.0 mg/dL (<2.0)
[2021-12-01] MEDS ORDERED: AMOXIC-POT CLAV 875-125MG 1 EACH TAB PO STA (05:51)
[2021-12-01 06:54] VITALS: BP 141/98; PULSE 78; TEMP 99.1
== END 2021-12-01 06:54 | disposition home or self-care (01) ==
LOC: EC 04:02
DX: K57.32 Diverticulitis of large intestine without perforation or abscess without bleeding (principal); I10 Essential (primary) hypertension; F17.200 Nicotine dependence, unspecified, uncomplicated; Z96.653 Presence of artificial knee joint, bilateral; Z96.611 Presence of right artificial shoulder joint; Z96.612 Presence of left artificial shoulder joint
CPT/HCPCS: 36415; 74176; 80053; 81003; 82150; 83690; 85025; 86140; 99284

== ENCOUNTER 2021-12-13 16:37 | Emergency (ER) | payer BC ==
[2021-12-13] MEDS ORDERED: ACETAMINOPHEN TAB 500 MG TAB PO STA (17:01)
--- NOTE | 2021-12-13 18:16 | ED ---
Fever HPI - General Chief Complaint: Fever Stated Complaint: Fever Time Seen by Provider: 12/13/21 18:01 Source: patient, family, RN notes reviewed Mode of arrival: ambulatory - History of Present Illness Initial Comments: This is a pleasant 66-year-old male who presents to the emergency department complaining of fever and headache which started about midnight last night. Patient denies any other symptomology. He denies any sore throat, no cough, no shortness of breath. Note that the patient is vaccinated against COVID-19 receiving the [employer] shot. He did not get a booster.Patient was given 1000 mg of acetaminophen. The triage nurse. Patient states that his symptoms have essentially resolved. no changes in vision or hearing, no sore throat or difficulty with speech, no neck pain, no chest pain or shortness of breath, no abdominal pain, no nausea or vomiting, no changes in urination or bowel movements, no numbness or tingling, no extremity pain, no skin rashes or lesions. MD Complaint: fever - Related Data Home Medications Medication Instructions Recorded Confirmed Losartan [Cozaar] 50 mg PO DAILY 12/02/16 08/07/21 Latanoprost [Xalatan 0.005%] 1 drop BOTH EYES HS 08/07/21 08/07/21 oxyCODONE-APAP 5-325MG [Percocet 1 tab PO Q4H PRN 08/07/21 08/07/21 5-325 mg] Previous Rx's Medication Instructions Recorded Amoxicillin/Potassium Clav 1 tab PO Q12HR 1 Days #14 tab 12/01/21 [Augmentin 875-125 Tablet] Albuterol Sulfate [Albuterol 2 puff PO Q6H #8.5 gm 12/13/21 Sulfate Hfa] Allergies Allergy/AdvReac Type Severity Reaction Status Date / Time No Known Allergies Allergy Verified 12/13/21 16:59 Review of Systems ROS Statement: Those systems with pertinent positive or pertinent negative responses have been documented in the HPI. ROS Other: All systems not noted in ROS Statement are negative. Past Medical History Past Medical History: Hypertension History of Any Multi-Drug Resistant Organisms: None Reported Past Surgical History: Joint Replacement, Orthopedic Surgery Additional Past Surgical History / Comment(s): Bilateral partial knee replacement; Bilateral shoulder Past Psychological History: No Psychological Hx Reported Smoking Status: Smoker, current status unknown Past Alcohol Use History: Heavy Past Drug Use History: None Reported General Exam - General Exam Comments Initial Comments: Patient in no acute distress. Patient does not appear to be ill or toxic. Vital signs reviewed. Cranial nerves II through XII grossly intact General appearance: alert, in no apparent distress Head exam: Present: atraumatic, normocephalic, normal inspection Eye exam: Present: normal appearance, PERRL, EOMI. Absent: scleral icterus, conjunctival injection, periorbital swelling ENT exam: Present: normal exam, normal oropharynx, mucous membranes dry, mucous membranes moist, TM's normal bilaterally, normal external ear exam Neck exam: Present: normal inspection, full ROM, other (No nuchal rigidity). Absent: tenderness, meningismus, lymphadenopathy Respiratory exam: Present: normal lung sounds bilaterally. Absent: respiratory distress, wheezes, rales, rhonchi, stridor Cardiovascular Exam: Present: regular rate, normal rhythm, normal heart sounds. Absent: systolic murmur, diastolic murmur, rubs, gallop, clicks GI/Abdominal exam: Present: soft, normal bowel sounds. Absent: distended, tenderness, guarding, rebound, rigid Extremities exam: Present: normal inspection, full ROM, normal capillary refill. Absent: tenderness, pedal edema, joint swelling, calf tenderness Back exam: Present: normal inspection Neurological exam: Present: alert, oriented X3, CN II-XII intact Psychiatric exam: Present: normal affect, normal mood Skin exam: Present: warm, dry, intact, normal color. Absent: rash Course Vital Signs 12/13/21 12/13/21 12/13/21 16:54 18:33 20:06 Temperature 102.6 F H 99.4 F 100.0 F H Pulse Rate 78 65 Respiratory 18 16 Rate Blood Pressure 145/79 163/77 O2 Sat by Pulse 96 96 Oximetry Medical Decision Making - Medical Decision Making No headache, no fever or chills, no changes in vision or hearing, no sore throat or difficulty with speech, no neck pain, no chest pain or shortness of breath, no abdominal pain, no nausea or vomiting, no changes in urination or bowel movements, no numbness or tingling, no extremity pain, no skin rashes or lesions. - Lab Data Lab Results 12/13/21 12/13/21 Range/Units 17:00 17:12 Coronavirus (PCR) Detected A (Not Detectd) Influenza Type A RNA Not Detected (Not Detectd) Influenza Type B (PCR) Not Detected (Not Detectd) Disposition Clinical Impression: COVID-19 Disposition: HOME SELF-CARE Condition: Good Instructions (If sedation given, give patient instructions): COVID-19 (Coronavirus Disease 2019) (ED) Additional Instructions: SELF QUARANTINE DISCHARGE: As you are at risk for symptoms due to coronavirus, please stay home and stay away from others as much as possible. Please maintain social distance of 6 feet if possible. You should not return to work until at least 3 days (72 hours) have passed since recovery of symptoms. This defined as resolution of fever without the use of fever reducing medicines and improvement in respiratory symptoms (e.g,, cough, shortness of breath) Isolation can end at least 5 days after symptom onset and after fever ends for 24 hours (without the use of fever-reducing medication) and symptoms are improving, if these people can continue to properly wear a well-fitted mask around others for 5 more days after the 5-day isolation period. If you're still having symptoms at the end of 5 day period, isolate for an additional 5 days. More information about what to do if you are sick can be found on the CDC website at https://www.cdc.gov/coronavirus/2019-ncov/me-ivo-xif-sick/ciapq-uwaf-yosz.html Expect the symptoms to last for 7-14 days from onset. Use acetaminophen (Tylenol) as needed for discomfort. You can take a maximum of 1 gram every 6 hours for discomfort, with your total dose in 24 hours not exceeding 4 grams. Be sure to maintain hydration. Drink continuous water and/or items high in vitamin C, such as orange juice and/or lemonade. Unless you have high blood pressure, you may consider Sudafed (which is [id number]) for nasal congestion. I would suggest that a short acting Sudafed rather than the 24 hour Sudafed. For a cough you may take Mucinex or Robitussin. Also consider the use of Vicks Vapor Rub or your chest when you sleep. Use a humidifier that is cleaned frequently, in the bedroom at night. For Nausea /Vomiting/Diarrhea associated with your Illness: o Small frequent sips of room temperature liquids. o Diet: Twiggs Foods - If you are still experiencing discomfort and/or nausea please slowly advancing your diet using the BRAT Diet = bananas, rice, apples/apple sauce, toast. o With diarrhea avoid any dairy for 48 hours after symptoms resolved. o Continue with activity as tolerated. If your symptoms do get worse and you believe that the upper respiratory infection has developed into something else, such as pneumonia or severe dehydration, please return to the emergency department or follow-up with your primary care. But expect to be symptomatic for the days as indicated above Prescriptions: Albuterol Sulfate [Albuterol Sulfate Hfa] 2 puff PO Q6H #8.5 gm Is patient prescribed a controlled substance at d/c from ED?: No Referrals: None,Stated [REFERRING] - 1-2 days Time of Disposition: 18:20
[2021-12-13] MEDS ORDERED: BEBTELOVIMAB (EUA) 175 MG/2 ML VIAL IV ONE (18:30)
[2021-12-13 20:08] VITALS: BP 163/77; PULSE 65; RESP 16; TEMP 100
== END 2021-12-13 20:07 | disposition home or self-care (01) ==
LOC: EC 16:37
DX: U07.1 COVID-19 (principal); I10 Essential (primary) hypertension; F17.200 Nicotine dependence, unspecified, uncomplicated; Z96.653 Presence of artificial knee joint, bilateral
CPT/HCPCS: 99284; 87502; 87635; Q0222

== ENCOUNTER 2022-01-02 09:26 | Day surgery (SDC) | payer BC ==
[2021-12-29 14:46] VITALS: BMI 30.4
[2022-01-02] MEDS ORDERED: LACTATED RINGERS 1,000 ML IV SCH (09:42)
[2022-01-02] MEDS ORDERED: LIDOCAINE 1% (10MG/ML) FOR IV START INTRADERMA PRN (09:42)
[2022-01-02 09:53] VITALS: TEMP 97.8
[2022-01-02] MEDS ORDERED: GLYCOPYRROLATE 0.2 MG/ML 2 ML VIAL ONE (11:01)
[2022-01-02] MEDS ORDERED: PROPOFOL 10 MG/ML 20 ML VIAL IV ONE (11:01)
--- NOTE | 2022-01-02 11:27 | P.GSHP ---
History of Present Illness H&P Date: 01/02/22 Chief Complaint: History of diverticulitis This a 66-year-old male who presents today for colonoscopy. Patient's that she is articulate the past. He's had some minimal rectal bleeding Past Medical History Past Medical History: Eye Disorder, Hypertension Additional Past Medical History / Comment(s): Glaucoma bilat eyes. Diverticulitis 6 wks ago. History of Any Multi-Drug Resistant Organisms: None Reported Past Surgical History: Joint Replacement, Orthopedic Surgery Additional Past Surgical History / Comment(s): Bilateral partial knee replacement; Bilateral shoulder surgeries. Colonoscopy Past Anesthesia/Blood Transfusion Reactions: No Reported Reaction Smoking Status: Current every day smoker - Past Family History Mother Family Medical History: Cancer Additional Family Medical History / Comment(s): ovarian cancer Medications and Allergies Home Medications Medication Instructions Recorded Confirmed Type Losartan [Cozaar] 50 mg PO DAILY 12/02/16 12/29/21 History Latanoprost [Xalatan 0.005%] 1 drop BOTH EYES HS 08/07/21 12/29/21 History Turmeric Root Extract [Turmeric] 500 mg PO DAILY 12/29/21 12/29/21 History Allergies Allergy/AdvReac Type Severity Reaction Status Date / Time No Known Allergies Allergy Verified 01/02/22 09:48 Surgical - Exam Vital Signs Temp Pulse Resp BP Pulse Ox 97.8 F 64 16 132/70 98 01/02/22 09:52 01/02/22 09:52 01/02/22 09:52 01/02/22 09:52 01/02/22 09:52 - General well developed, well nourished, no distress - Eyes PERRL - ENT normal pinna - Neck no masses - Respiratory normal expansion - Cardiovascular Rhythm: regular - Abdomen Abdomen: soft, non tender Assessment and Plan Assessment: History Dr. Lyles Rectal bleeding We'll perform colonoscopy
--- NOTE | 2022-01-02 11:29 | P.OP ---
Date of Procedure: 01/02/22 Preoperative Diagnosis: Diverticulitis Rectal bleeding Postoperative Diagnosis: Internal/external hemorrhoids Mild diverticulosis Procedure(s) Performed: Colonoscopy Anesthesia: MAC Surgeon: Stanton Cabrera Pathology: none sent Condition: stable Disposition: PACU Description of Procedure: The patient's placed on the endoscopy table in the lateral position. He received IV sedation. Digital rectal exam was performed. This revealed external hemorrhoids. Flexible colonoscope was then placed patient anus passed rotator colon. Ileocecal valve was visually is. The cecum, ascending and transverse colon appeared normal. The descending; was mild diverticulosis. There was no evidence of acute diverticula is. Scope was brought back the rectum and this appeared normal. Scope withdrawn for patient. And internal and external hemorrhoids were noted. Presumed patient may have had previous rectal bleeding from hemorrhoids.
[2022-01-02 11:56] VITALS: BP 110/67; PULSE 64; RESP 18
== END 2022-01-02 12:09 | disposition home or self-care (01) ==
LOC: ORWHC2ENDO 09:26
PROVIDERS: ATTEND Surgery
DX: K57.30 Diverticulosis of large intestine without perforation or abscess without bleeding (principal); K64.4 Residual hemorrhoidal skin tags; K64.8 Other hemorrhoids; Z80.41 Family history of malignant neoplasm of ovary; I10 Essential (primary) hypertension; H40.9 Unspecified glaucoma; Z96.653 Presence of artificial knee joint, bilateral; Z98.890 Other specified postprocedural states; F17.210 Nicotine dependence, cigarettes, uncomplicated; Z79.899 Other long term (current) drug therapy; K62.5 Hemorrhage of anus and rectum
CPT/HCPCS: 45378; J2704

== ENCOUNTER → 2022-09-05 | Outpatient (CLI) | payer BC ==
[~2022-09-05] MED LIST: REGADENOSON 0.4 MG/5 ML SYRINGE IV PRN
--- NOTE | 2022-09-05 10:54 | CA ---
Lexiscan Nuclear Stress Test Report Name: Milo Kenny Exam Date: 09/05/2022 09:56 Exam Location: [facility] Ht (in): 68 Wt (lb): 195 BSA: 2.02 Ordering Phys: Jose Raul Rosa MD Referring Phys: Moe,, Technologist: Giovani Durán Age: 67 Gender: M : 1955 Procedure CPT: Indications: I25.84 CAD ICD-10 Codes: Patient History: HTN, CURRENT SMOKER 1 PPD X 15 YEARS Medications: LOSARTAN,,,,,, LATANOPROST,,,,, Meds past 24 hrs: Pretest Chest Pain: STRESS TEST Lexiscan Protocol Exercise Duration (min:sec): 01:[address] Depressions (mm): Angina Score: Wilder Score: Resting HR (bpm): 50 Peak HR (bpm): 70 Resting BP (mmHg): 134 / 74 Peak BP (mmHg): 134 / 74 MPHR: 154 Target HR: 131 % MPHR: 45 METS: 1.0 Total Dose: Peak Dose: Atropine: Double Product: 9380 BP Response: Stress Termination: INFUSION COMPLETE Stress Symptoms: NO SYMPTOMS Stress Summary: ECG ANALYSIS Resting ECG: Stress ECG: CONCLUSIONS At baseline EKG showed normal sinus rhythm, normal axis, nonspecific 0.[address] depression in lead 3 and aVF. Patient recieved IV infusion of Lexiscan 0.4mg and at peak infusion EKG showed no significant change from baseline. Conclusions: 1. Nonspecific stress EKG portion given baseline EKG abnormalities 2. Nuclear imaging to be reported separately. Dr. Jerman Raman DO (Electronically Signed) Final Date: 05 September 2022 10:53
--- NOTE | 2022-09-05 14:58 | NM ---
EXAMINATION TYPE: NM stress lexiscan cardiolite DATE OF EXAM: 09/05/2022 COMPARISON: NONE HISTORY: TECHNIQUE: After the intravenous administration of 9.7 mCi Tc 99m Sestamibi - Cardiolite resting SPE CT images acquired 45 minutes post injection. The patient received 0.4mg Lexiscan, 24.7 mCi Tc 99m Sestamibi - Stress images obtained [address] injection FINDINGS: Review of stress and rest SPECT images demonstrates findings suspicious for small inferolateral area stress induced reversible ischemia. Gated analysis shows normal wall motion with an estimated left v entricular ejection fraction of 60 %. IMPRESSION: 1. Findings suspicious for a small area of stress versus inferior lateral myocardium. 2. ejection fraction of 60%.
== END | disposition home or self-care (01) ==
LOC: RADNMMAIN 08:38
PROVIDERS: ATTEND Internal Medicine
DX: I25.84 Coronary atherosclerosis due to calcified coronary lesion (principal)
CPT/HCPCS: 93017; 78452; A9500; J2785

== ENCOUNTER 2022-10-04 08:50 | Day surgery (SDC) | payer BC ==
[~2022-10-04 08:50] MED LIST changes: +ALPRAZolam 0.25 MG TAB PO PRN; +ALPRAZolam 0.5 MG TAB PO PRN; +ASPIRIN 325 MG TAB PO ONE; +ATORVASTATIN 80 MG TAB PO ONE; +HEPARIN SODIUM,PORCINE 10,000 UNIT in SODIUM CHLORIDE 0.9% 1,000 ML IRRIGATION PRN; +HEPARIN SODIUM,PORCINE 2,500 UNIT in SODIUM CHLORIDE 0.9% 250 ML IRRIGATION PRN; +NITROGLYCERIN SL TABS 0.4 MG TAB SUBLINGUAL PRN; -REGADENOSON 0.4 MG/5 ML SYRINGE IV PRN
[2022-10-04] MEDS ORDERED: SODIUM CHLORIDE 0.9% 1,000 ML IV ONE (09:09)
[2022-10-04 09:44] LABS: Basophils # (A) 0.1 k/uL (0-0.2); Basophils % (A) 1 %; Eosinophils # (A) 0.8 k/uL (0-0.7); Eosinophils % (A) 11 %; HCT 41.7 % (39.0-53.0); HGB 14.2 gm/dL (13.0-17.5); Lymphocytes # (A) 1.8 k/uL (1.0-4.8); Lymphocytes % (A) 26 %; MCH 30.5 pg (25.0-35.0); Mean Platelet Volume 6.9; Monocytes # (A) 0.4 k/uL (0-1.0); Monocytes % (A) 5 %; Neutrophils # (A) 3.7 k/uL (1.3-7.7); Neutrophils % (A) 54 %; Platelet Count 237 k/uL (150-450); RBC 4.65 m/uL (4.30-5.90); RDW 12.6 % (11.5-15.5); WBC 6.9 k/uL (3.8-10.6)
[2022-10-04 09:48] LABS: African American GFR (CKD) >90 (>60 ml/min/1.73 sqM); Anion Gap 4 mmol/L; Blood Urea Nitrogen 19 mg/dL (9-20); Carbon Dioxide 28 mmol/L (22-30); Chloride 107 mmol/L (98-107); Glucose 118 mg/dL (74-99); Non-African American GFR(CKD) >90 (>60 ml/min/1.73 sqM); Potassium 4.5 mmol/L (3.5-5.1); Sodium 139 mmol/L (137-145)
[2022-10-04 09:49] LABS: MCV 89.8 fL (80.0-100.0)
[2022-10-04] MEDS ORDERED: HEPARIN SODIUM 1,000 UN/ML (10ML VL) ONE (11:22)
[2022-10-04] MEDS ORDERED: VERAPAMIL 2.5 MG/ML 2 ML AMP ONE (11:22)
[2022-10-04] MEDS ORDERED: MIDAZOLAM 2 MG/2 ML VIAL IV ONE ×3 (11:29→11:44)
[2022-10-04] MEDS ORDERED: LIDOCAINE 1% INJ 10MG/ML (5 ML VIAL-PF) SQ ONE (11:37)
[2022-10-04] MEDS ORDERED: VERAPAMIL SYRINGE (5 MG/10 ML) INTRAARTER ONE (11:38)
[2022-10-04] MEDS: HEPARIN SODIUM 1,000 UN/ML (10ML VL) IV ONE ×4 (11:40→13:03)
[2022-10-04] MEDS ORDERED: niCARdipine 25 MG/10 ML VIAL ONE (12:05)
[2022-10-04] MEDS: NITROGLYCERIN 1000MCG/10ML SYRINGE INTRACORON ONE ×2 (12:07→12:56)
[2022-10-04] MEDS ORDERED: niCARdipine 25 MG/10 ML VIAL INTRACORON ONE (12:07)
[2022-10-04] MEDS ORDERED: niCARdipine Syringe (1,000 mcg/10 mL) INTRACORON ONE (12:07)
[2022-10-04] MEDS ORDERED: IOPAMIDOL-370 100ML BTL INJ ONE ×2 (12:24→13:07)
[2022-10-04] MEDS ORDERED: IOPAMIDOL-300 50ML BTL INJ ONE (12:24)
[2022-10-04] MEDS ORDERED: PRASUGREL 10 MG TAB ONE (13:00)
[2022-10-04] MEDS ORDERED: PRASUGREL 10 MG TAB PO ONE (13:00)
[2022-10-04] MEDS ORDERED: MAG HYDROX/AL HYDROX/SIMETH 30 ML CUP PO PRN (13:17)
[2022-10-04] MEDS ORDERED: NITROGLYCERIN SL TABS 0.4 MG TAB SUBLINGUAL PRN (13:17)
[2022-10-04] MEDS ORDERED: ATROPINE SULFATE 0.1 MG/ML 10ML SYRINGE IV PRN (13:17)
[2022-10-04] MEDS ORDERED: ZOLPIDEM 5 MG TAB PO PRN (13:17)
[2022-10-04] MEDS ORDERED: RX INFO: IV CONTRAST WAS GIVEN 1 EACH MISC MISCELLANE PRN (13:17)
--- NOTE | 2022-10-04 13:26 | P.PCN ---
Date of Procedure: 10/04/22 Operative Findings: CARDIAC CATHETERIZATION AND PERCUTANEOUS CORONARY INTERVENTION PERFORMING PHYSICIAN: Mark Anthony Grullon MD, [facility] PROCEDURE PERFORMED: 1. Selective right and left coronary angiogram 2. Left heart catheterization 3. Successful stenting of PDA of RCA using 0.5 x 15 mm Xience JORDIN which with an excellent angiographic results with adjunctive use of iFR 4. Successful stenting of the PLV branch of the RCA using 2.5 x 38 and 3.0 x 38 and 3.25 x 15 mm Xience JORDIN with an excellent angiographic results and without adjunctive use of intravascular ultrasound INDICATION: This is a 67-year-old gentleman with hypertension and dyslipidemia and known coronary artery disease based on CT calcium score was seen for further evaluation of shortness of breath. He underwent myocardial perfusion imaging stress test and that came in to be abnormal showing moderate area of reversibility inferiorly. In the light of that a heart catheterization was advised COMPLICATION: None APPROACH: Right radial artery LEVEL OF SEDATION: Moderate with the sedation time off 83 minutes PROCEDURE DESCRIPTION: After obtaining an informed consent the patient was brought to the cardiac chemical laboratory assistant. The right radial artery was cannulated using micropuncture technique under ultrasound guidance, the micropuncture wire passed easily then I placed a 6- [place] sheath at the right radial artery. I did after that give the patient 2 mg of verapamil intra-arterial and a total of 8000 units of heparin IV. Initially he was given 6000 use of heparin IV and subsequently during intervention on the RCA he was given additional 2000. After that I did selecti ve right and left coronary angiogram using JR4 and JL 3.5 catheters. Left heart catheterization was performed using the JR4 catheter which across aortic valve. After that I did intervene on the PDA and PLV branches of the right coronary arteries. Seizure was completed was no complication SELECTIVE CORONARY ANGIOGRAM: The right coronary artery: Large caliber vessel and a dominant vessel. The RCA is calcified. The mid RCA has intermediate disease only. The RCA distally bifurcates into PDA and PLV branches. The PDA branch distally has a lesion appears to be in the range of 60%. We did iFR and that came in to be ischemic 0.86. After that the PLV branch of the right coronary artery is chronically occluded and fills by ipsilateral and contralateral collateral Left main: Calcified was mild disease only. The left circumflex: Ostial left circumflex has intermediate lesion appears to be in the range of 50%. The circumflex after that has mild disease only and gives rises into multiple OM branches appears to have mild disease only. The left anterior descending artery: The proximal LAD has mild disease only. The mid LAD by the bifurcation of the second diagonal branch has a lesion appeared to be in the range of 50%. The first diagonal branch has an ostial lesion appeared to be in the range of 50%. The distal LAD appears to have mild disease only. HEMODYNAMICS: The LVEDP was about 14 mmHg was no significant gradient across aortic valve PCI OF THE RCA: Anticoagulation was initiated using heparin with continuous ACT monitoring. Subsequently I decided to do one FFR of the PDA of RCA. After zeroing the Doppler wire and equalizing between the Doppler wire and the guiding catheter which was an a.l. 0.75 guiding catheter and after wiring the PDA we did the measurement and that came in to be ischemic and 0.84. I did perform iFR with no FFR needed. At that point I did balloon angioplasty using 2.5 x 12 mm balloon before I deployed 2.5 x 15 mm stent where the stent was positioned under fluoroscopy guidance and deployed under its nominal pressure. Subsequently I decided to open the PLV branch of the right coronary artery. I did cross the chronic total occlusion using a whisper wire with a backup support of super cross catheter. After that I did balloon angioplasty initially attempting using 1.5 mm balloon but the balloon would not cross but subsequently using 1 mm balloon and then 1.5 mm balloon and then 2.5 mm balloon. Intravascular ultrasound was performed and showed diameter of the PLV between 2.5-3 mm. Circumflex distally I deployed 2.5 x 38 mm stent and in the midportion I deployed 3.0 x 38 and proximally 3.25 x 15 mm stents. The final angiogram showed good angiographic results and the procedure was completed was no complication CONCLUSION: 1. Occluded PLV branch of the RCA and severe disease involving the PDA branch of the RCA. I did perform successful stenting of the PLV and PDA with a good angiographic results 2. Intermediate nonobstructive disease involving the left coronary system 3. Extremely calcified right and left coronary system POSTPROCEDURE MANAGEMENT: #1 dual antiplatelet therapy using aspirin and Effient for at least 6 months. #2 aggressive cholesterol control #3 follow-up with the patient
[2022-10-04] MEDS ORDERED: SODIUM CHLORIDE 0.9% 1,000 ML in EMPTY BAG 1 BAG IV SCH (13:30)
[2022-10-04] MEDS: SODIUM CHLORIDE 0.9% 1,000 ML in EMPTY BAG 1 BAG IV SCH ×3 (14:46→20:57)
[2022-10-04] MEDS ORDERED: LATANOPROST 0.005% OPHTH DROPS 2.5 ML BTL BOTH EYES SCH (21:00)
[2022-10-05 08:25] VITALS: BP 136/81; PULSE 57; RESP 18; TEMP 98
[2022-10-05 08:38] LABS: African American GFR (CKD) >90 (>60 ml/min/1.73 sqM); Non-African American GFR(CKD) >90 (>60 ml/min/1.73 sqM)
[2022-10-05] MEDS ORDERED: COLCHICINE 0.6 MG EACH PO ONE (08:38)
[2022-10-05] MEDS ORDERED: HYDROmorphone 0.5 MG/0.5 ML SYRINGE IVP PRN (08:39)
[2022-10-05] MEDS ORDERED: ATORVASTATIN 40 MG TAB PO SCH (09:00)
[2022-10-05] MEDS ORDERED: PRASUGREL 10 MG TAB PO SCH (09:00)
[2022-10-05] MEDS ORDERED: ASPIRIN 81 MG PO SCH (09:00)
[2022-10-05] MEDS ORDERED: LOSARTAN 50 MG TAB PO SCH (09:00)
[2022-10-05] MEDS ORDERED: METOPROLOL SUCCINATE (ER) 25 MG TAB.ER.24H PO SCH (09:00)
--- NOTE | 2022-10-05 09:28 | P.DS ---
Providers Attending physician: Mark Anthony Grullon Consults: 10/04/22 13:17 Consult Physician Routine Consulting Provider: [facility] Consult Reason/Comments: Post Interventional patient Do you want consulting provider notified?: Already Contacted 10/05/22 08:33 Consult Physician Routine Consulting Provider: Jose Raul Rosa Consult Reason/Comments: possible gout of left great toe Do you want consulting provider notified?: Yes Primary care physician: Jose Raul Rosa Hospital Course: The patient is a pleasant 67-year-old patient who underwent yesterday a heart catheterization and stenting of the PDA and PLV branches of the right coronary artery. He was seen this morning. The right radial site is soft and nontender with a small hematoma but with a good pulse. He is asymptomatic in terms of chest pain or chest discomfort. He is a moderate the stable. He is experiencing pain in the left toe consistent with gout. I'm going to ask Dr. Rosa to evaluate the patient. We gave the patient one dose of colchicine. The patient is going to be discharged later on today on dual antiplatelet therapy and high intensity statin and will follow-up with the patient next week in the office Plan - Discharge Summary Discharge Rx Participant: Yes New Discharge Prescriptions: New Prasugrel [Effient] 10 mg PO DAILY #90 tab Continue Losartan [Cozaar] 50 mg PO DAILY Latanoprost [Xalatan 0.005%] 1 drop BOTH EYES HS Aspirin 81 mg PO DAILY Atorvastatin [Lipitor] 40 mg PO DAILY Metoprolol Succinate [Metoprolol Succinate ER] 25 mg PO DAILY Discharge Medication List Losartan [Cozaar] 50 mg PO DAILY 12/02/16 [History] Latanoprost [Xalatan 0.005%] 1 drop BOTH EYES HS 08/07/21 [History] Aspirin 81 mg PO DAILY 10/02/22 [History] Atorvastatin [Lipitor] 40 mg PO DAILY 10/02/22 [History] Metoprolol Succinate [Metoprolol Succinate ER] 25 mg PO DAILY 10/02/22 [History] Prasugrel [Effient] 10 mg PO DAILY #90 tab 10/05/22 [Rx] Follow up Appointment(s)/Referral(s): Mark Anthony Grullon MD [STAFF PHYSICIAN] - 1 Week (Office will call with appointment date and time)
--- NOTE | 2022-10-05 14:28 | P.CONS ---
History of Present Illness - Reason for Consult Consult date: 10/05/22 GOUT - History of Present Illness HISTORY OF PRESENT ILLNESS This is a 67-year-old male with past medical history of hypertension, borderline diabetes, hyperlipidemia, smoking history and alcohol abuse. Patient underwent a CT calcium score that came back abnormal and subsequently underwent myocardial perfusion stress test which came back abnormal and patient was sent to Dr. Grullon for further evaluation. Patient has been brought into the hospital by Dr. Grullon for cardiac catheterization which revealed occluded PLV branch of the RCA and severe disease involving the PDA branch of the RCA status post successful stenting of the PLV and PDA. Intermediate nonobstructive disease involving the left coronary system. Extremely calcified right and left coronary system. Patient was started on aspirin and Effient plan for 6 months. We've been asked to see the patient with concern for gout. Patient is complaining of pain in his left toe. Patient has no previous history of gout. Laboratory studies reveal CBC essentially normal. Blood sugar 118. Creatinine 0.73. REVIEW OF SYSTEMS Constitutional: No fever, no chills, no night sweats. No weight change. No weakness, fatigue or lethargy. No daytime sleepiness. EENT: No headache. No blurred vision or double vision, no loss of vision. No loss of Hearing, no ringing in the ears, no dizziness. No nasal drainage or co ngestion. No epistaxis. No sore throat. Lungs: No shortness of breath, cough, no sputum production. No wheezing. Cardiovascular: No chest pain, no lower extremity edema. No palpitations. No paroxysmal nocturnal dyspnea. No orthopnea. No lightheadedness or dizziness. No syncopal episodes. Abdominal: No abdominal pain. No nausea, vomiting. No diarrhea. No constipation. No bloody or tarry stools. No loss of appetite. Genitourinary: No dysuria, increased frequency, urgency. No urinary retention. Musculoskeletal: No myalgias. No muscle weakness, no gait dysfunction, no frequent falls. No back pain. No neck pain. Left toe pain. Integumentary: No wounds, no lesions. No rash or pruritus. No unusual bruising. . Neurologic: No aphasia. No facial droop. No change in mentation. No head injury. No headache. No paralysis. No paresthesia. Psychiatric: No depression. No anxiety. Endocrine: No abnormal blood sugars. No weight change. MEDICAL HISTORY Hypertension Borderline diabetes Hyperlipidemia. SURGICAL HISTORY Bilateral knee replacement in Colonoscopydiverticulosis 01/2022 Bilateral rotator cuff tear repair. SOCIAL HISTORY Patient is a smoker of 3/4 pack per day starting at age 18 but quit for 30 years and has been a smoker for the past 10 years, history of alcohol use usually daily up to 5-6 drinks per day. No marijuana use. FAMILY HISTORY Father at age 87 from Alzheimer's dementia with history of diabetes mellitus type 2. Mother at age 59 from some type of cancer and had hypertension. Patient has one brother living with no major medical problems. Patient has one sister alive with memory issues. Patient has one son and one daughter with no major medical problems. PHYSICAL EXAMINATION Gen: This is a 67 year old male. He is resting in bed appears comfortable and in no acute distress HEENT: Head is atraumatic, normocephalic. Pupils equal, round. Sclerae is anicteric. NECK: Supple. No JVD. No lymphadenopathy. No thyromegaly. LUNGS: Clear to auscultation. No wheezes or rhonchi. No intercostal retractions. HEART: Regular rate and rhythm. 2/6 systolic murmur. ABDOMEN: Soft. Bowel sounds are present. No masses. No tenderness. EXTREMITIES: No pedal edema. No calf tenderness. NEUROLOGICAL: Patient is awake, alert and oriented x3. Cranial nerves 2 through 12 are grossly intact. ASSESSMENT AND PLAN 1. Coronary artery disease status post stent placement in the PLV and PDA. Dr. Grullon is planning for discharge home today. Patient has been started on Effient and continue aspirin 81 mg daily, Lipitor 40 mg daily, Toprol-XL 25 mg daily. 2. Gout left toe. Patient started on colchicine. 3. Hypertension. Continue losartan 50 mg daily and Toprol-XL 25 mg daily. 4. Hyperlipidemia. Continue atorvastatin 40 mg at bedtime. Impression and plan of care have been directed as dictated by the signing physician. Sarah Pérez nurse practitioner acting as scribe for signing physician. Past Medical History Past Medical History: Eye Disorder, Hyperlipidemia, Hypertension, Osteoarthritis (OA) Additional Past Medical History / Comment(s): Glaucoma bilat eyes. Diverticulitis, recent stress test & echo History of Any Multi-Drug Resistant Organisms: None Reported Past Surgical History: Joint Replacement, Orthopedic Surgery Additional Past Surgical History / Comment(s): Bilateral partial knee replacem ent, had to have some sort of vasc. surgery after one of knee replacements, Bilateral shoulder surgeries. Colonoscopy Past Anesthesia/Blood Transfusion Reactions: No Reported Reaction Smoking Status: Current every day smoker - Past Family History Mother Family Medical History: Cancer Additional Family Medical History / Comment(s): ovarian cancer Medications and Allergies Home Medications Medication Instructions Recorded Confirmed Type Losartan [Cozaar] 50 mg PO DAILY 12/02/16 10/02/22 History Latanoprost [Xalatan 0.005%] 1 drop BOTH EYES HS 08/07/21 10/04/22 History Aspirin 81 mg PO DAILY 10/02/22 10/04/22 History Atorvastatin [Lipitor] 40 mg PO DAILY 10/02/22 10/02/22 History Metoprolol Succinate [Metoprolol 25 mg PO DAILY 10/02/22 10/02/22 History Succinate ER] Colchicine [Colcrys] 0.6 mg PO BID #28 each 10/05/22 Rx Prasugrel [Effient] 10 mg PO DAILY #90 tab 10/05/22 Rx Allergies Allergy/AdvReac Type Severity Reaction Status Date / Time No Known Allergies Allergy Verified 10/04/22 09:13 Physical Exam Vitals: Vital Signs Temp Pulse Pulse Pulse Resp BP BP 10/05/22 08:29 10/05/22 07:00 98 F 57 L 18 136/81 10/05/22 00:24 98.0 F 53 L 16 144/79 10/04/22 20:02 97.8 F 61 16 136/75 10/04/22 16:51 50 L 16 134/75 10/04/22 16:35 98.3 F 53 L 16 126/72 10/04/22 15:50 10/04/22 15:12 97.9 F 49 L 16 143/77 10/04/22 14:32 47 L 16 109/62 10/04/22 14:02 50 L 16 119/73 10/04/22 13:47 48 L 16 116/69 10/04/22 13:32 52 L 16 122/76 10/04/22 13:18 56 L 16 118/71 10/04/22 09:17 99.1 F 54 L 16 144/69 139/85 Pulse Ox 10/05/22 08:29 97 02/02/23 07:00 97 10/05/22 00:24 97 10/04/22 20:02 97 10/04/22 16:51 98 10/04/22 16:35 98 10/04/22 15:50 98 10/04/22 15:12 97 10/04/22 14:32 98 10/04/22 14:02 10/04/22 13:47 98 10/04/22 13:32 97 10/04/22 13:18 96 10/04/22 09:17 97 Intake and Output 10/04/22 10/05/22 10/05/22 22:59 06:59 14:59 Other: # Voids 1 3 Results CBC & Chem 7: 10/04/22 09:10 10/05/22 07:04 Labs: Abnormal Lab Results - Last 24 Hours (Table) 10/04/22 10/04/22 Range/Units 09:10 09:10 Eosinophils # 0.8 H (0-0.7) k/uL Glucose 118 H (74-99) mg/dL
[2022-10-05] MEDS ORDERED: COLCHICINE 0.6 MG EACH PO SCH (21:00)
== END 2022-10-05 12:24 | disposition home or self-care (01) ==
LOC: CATHCVL 08:50 → 5NMEDONC 13:09 → 6NMEDSUR 13:15 → CATHCVL 10-05 12:24
PROVIDERS: ATTEND Internal Medicine Interventional Cardiology
DX: I25.10 Atherosclerotic heart disease of native coronary artery without angina pectoris (principal); I10 Essential (primary) hypertension; E78.5 Hyperlipidemia, unspecified; Z79.899 Other long term (current) drug therapy; F17.210 Nicotine dependence, cigarettes, uncomplicated; F10.20 Alcohol dependence, uncomplicated; I25.9 Chronic ischemic heart disease, unspecified; Z79.82 Long term (current) use of aspirin; Z79.02 Long term (current) use of antithrombotics/antiplatelets
CPT/HCPCS: 93458; 94760 ×2; 92978; 93799; 80048; 82565; 85025; 92943 ×2; C9601; C9607; C1769 ×3; C1887 ×2; C1894; C1725 ×4; C1753; C1874 ×4; J2250; J2001; J1644; J1170; Q9967 ×2

== ENCOUNTER → 2023-01-23 | Outpatient (CLI) | payer BC ==
--- NOTE | 2023-01-23 11:15 | CT ---
EXAMINATION TYPE: CT chest wo con CT DLP: 374.1 mGycm, Automated exposure control for dose reduction was used. DATE OF EXAM: 01/23/2023 10:46 AM COMPARISON: 06/14/2022. CLINICAL INDICATION:Male, 67 years old with history of R91.1 M47.816, lung nodule TECHNIQUE: Multiple axial images were obtained through the chest. Sagittal and coronal reformats were created for review. Contrast used: none. Oral contrast used: none. FINDINGS: LUNGS/ PLEURA: Tiny pulmonary nodule seen on prior is not appreciated on today's exam. No focal conso lidation, pneumothorax or pleural effusion. AIRWAY: Patent and unremarkable. HEART: Size within normal limits. Dense atherosclerotic calcified lesions of the coronary arteries. MEDIASTINUM: No gross evidence of adenopathy. VASCULATURE: No aortic aneurysm. MUSCULOSKELETAL: Mild disc degeneration changes are present throughout the thoracolumbar spine. SOFT TISSUES/LYMPH NODES: Unremarkable. LOWER NECK: No significant findings. UPPER ABDOMEN: Nonobstructing left renal calculus measuring 4 mm. IMPRESSION: 1. No clinically significant pulmonary nodules. 2. Consider follow-up CT low dose in one year with low-dose lung cancer screening.
--- NOTE | 2023-01-23 15:28 | XR ---
EXAMINATION TYPE: XR lumbar spine 2 or 3V DATE OF EXAM: 01/23/2023 Comparison: 04/17/2012 Clinical History: 67-year-old male R91.1, M47.816 Findings: 5 lumbar type vertebral bodies. Hypertrophic facet arthropathy mid to lower lumbar spine. And mild de generative disc disease and endplate spondylosis throughout the lumbar spine. Also within the lower t horacic spine. Vertebral body heights are preserved and alignment is maintained. Impression: 1. Mild multilevel degenerative disc disease and endplate spondylosis. 2. Hypertrophic facet arthropathy mid to lower lumbar spine. 3. No vertebral compression collapse or malalignment.
== END | disposition home or self-care (01) ==
LOC: RADCTMAIN 09:41
PROVIDERS: ATTEND Internal Medicine
DX: M47.816 Spondylosis without myelopathy or radiculopathy, lumbar region (principal); M51.36 Other intervertebral disc degeneration, lumbar region; R91.1 Solitary pulmonary nodule
CPT/HCPCS: 71250; 72100

== ENCOUNTER 2023-02-20 12:11 | Emergency (ER) | payer BC ==
[2023-02-20 12:29] VITALS: RESP 18
[2023-02-20] MEDS ORDERED: LIDOCAINE/EPINEPHR/TETRACAINE 5 ML BOTTLE TOPICAL ONE (12:46)
--- NOTE | 2023-02-20 12:49 | ED ---
Wound/Laceration HPI - General Chief Complaint: Wound/Laceration Stated Complaint: facial laceration Time Seen by Provider: 02/20/23 12:32 Source: patient, RN notes reviewed Mode of arrival: ambulatory Limitations: no limitations - History of Present Illness Initial Comments: This is a 67-year-old male who presents to the emergency department for a wound to the left cheek. States that this morning he accidentally scratched himself on the face. He is unsure if there was a scab there or what, but states that this area won't stop bleeding, and has been bleeding for 1.5 hours at this point. He is on blood thinners. Denies any substantial pain. Tetanus vaccine is up to date. Denies any fevers, chills, sore throat, cough, dyspnea, chest pain, palpitations, abdominal pain, nausea, vomiting, diarrhea, back pain, or headaches. - Related Data Home Medications Medication Instructions Recorded Confirmed Losartan [Cozaar] 50 mg PO DAILY 12/02/16 10/02/22 Latanoprost [Xalatan 0.005%] 1 drop BOTH EYES HS 08/07/21 10/04/22 Aspirin 81 mg PO DAILY 10/02/22 10/04/22 Atorvastatin [Lipitor] 40 mg PO DAILY 10/02/22 10/02/22 Metoprolol Succinate [Metoprolol 25 mg PO DAILY 10/02/22 10/02/22 Succinate ER] Previous Rx's Medication Instructions Recorded Colchicine [Colcrys] 0.6 mg PO BID #28 each 10/05/22 Prasugrel [Effient] 10 mg PO DAILY #90 tab 10/05/22 Allergies Allergy/AdvReac Type Severity Reaction Status Date / Time No Known Allergies Allergy Verified 10/04/22 09:13 Review of Systems ROS Statement: Those systems with pertinent positive or pertinent negative responses have been documented in the HPI. ROS Other: All systems not noted in ROS Statement are negative. Past Medical History Past Medical History: Eye Disorder, Hyperlipidemia, Hypertension, Osteoarthritis (OA) Additional Past Medical History / Comment(s): Glaucoma bilat eyes. Diverticulitis, recent stress test & echo History of Any Multi-Drug Resistant Organisms: None Reported Past Surgical History: Joint Replacement, Orthopedic Surgery Additional Past Surgical History / Comment(s): Bilateral partial knee replacement, had to have some sort of vasc. surgery after one of knee replacements, Bilateral shoulder surgeries. Colonoscopy Past Anesthesia/Blood Transfusion Reactions: No Reported Reaction Past Psychological History: No Psychological Hx Reported Smoking Status: Current every day smoker Past Alcohol Use History: Occasional Past Drug Use History: None Reported - Past Family History Mother Family Medical History: Cancer Additional Family Medical History / Comment(s): ovarian cancer General Exam Limitations: no limitations General appearance: alert, in no apparent distress Head exam: Present: atraumatic, normocephalic, normal inspection Respiratory exam: Present: normal lung sounds bilaterally. Absent: respiratory distress, wheezes, rales, rhonchi, stridor Cardiovascular Exam: Present: regular rate, normal rhythm, normal heart sounds. Absent: systolic murmur, diastolic murmur, rubs, gallop, clicks Neurological exam: Present: alert, oriented X3, CN II-XII intact Psychiatric exam: Present: normal affect, normal mood Skin exam: Present: other (Pinpoint area to the left cheek with active bleeding.) Course Vital Signs 02/20/23 02/20/23 12:26 14:03 Temperature 98.1 F 97.9 F Pulse Rate 60 62 Respiratory 18 18 Rate Blood Pressure 151/83 146/76 O2 Sat by Pulse 98 99 Oximetry Procedures - Laceration Laceration #1 Consent Obtained: verbal consent Site: face Anesthetic Used: lidocaine 1% Anesthesia Technique: local infiltration Amount (mls): 1 Size of Sutures: 5-0 Number of Sutures: 3 Technique: simple, interrupted Medical Decision Making - Medical Decision Making This is a 67-year-old male who presents to the emergency department for a bleeding wound. Was pt. sent in by a medical professional or institution? @ -No Did you speak to anyone other than the patient for history? @ -No Did you review nursing and triage notes? @ -Yes, and I agree, it is accurate with regards to the patient's symptoms. Were old charts reviewed? @ -No Differential Diagnosis? @ -Not applicable EKG interpreted by me (3pts min.)? @ -Not obtained X-rays interpreted by me (1pt min.)? @ -Not obtained CT interpreted by me (1pt min.)? @ -Not obtained U/S interpreted by me (1pt. min.)? @ -Not obtained What testing was considered but not performed? (CT, X-rays, U/S, labs)? Why? @ -None What meds were considered but not given? Why? @ -None Did you discuss the management of the patient with other professionals? @ -No Did you reconcile home meds? @ -No Was smoking cessation discussed for >3mins.? @ -No Was critical care preformed (if so, how long)? @ -No Were there social determinants of health that impacted care today? How? (Homelessness, low income, unemployed, alcoholism, drug addiction, transportation, low edu. Level, literacy, decrease access to med. care, custodial, rehab)? @ -No Was there de-escalation of care discussed even if they declined? (Discuss DNR or withdrawal of care, Hospice)? @ -No What co-morbidities impacted this encounter? (DM, HTN, Smoking, COPD, CAD, Cancer, CVA, Hep., AIDS, mental health diagnosis, sleep apnea, morbid obesity)? @ -CAD Was patient admitted / discharged? @ -Discharged. On physical examination the patient had a small pinpoint area with active bleeding. Patient appears to have nicked a blood vessel, causing the bleeding. Tetanus vaccine is up to date. LET was initially applied, however hemostasis was not achieved. Sutures were subsequently placed to control the bleeding, which did effectively manage this. This was bandaged and the patient was discharged home in stable condition. He is instructed to return in 5-7 days for suture removal. Undiagnosed new problem with uncertain prognosis? @ -None Drug Therapy requiring intensive monitoring for toxicity (Heparin, Nitro, Insulin, Cardizem)? @ -None Were any procedures done? @ -Yes, suture placement Diagnosis/symptom? @ -Laceration Acute, or Chronic, or Acute on Chronic? @ -Acute Uncomplicated (without systemic symptoms) or Complicated (systemic symptoms)? @ -Uncomplicated Side effects of treatment? @ -None Exacerbation, Progression, or Severe Exacerbation] @ -Not applicable Poses a threat to life or bodily function? @ -No Return precautions reviewed in depth, the patient is instructed to return to the emergency department with any new, worsening, or concerning symptoms. Patient verbalized understanding. This case was discussed in detail with the attending ED physician, Dr. Hackett Presentation, findings, and treatment plan discussed in detail as well. Disposition Clinical Impression: Laceration Disposition: HOME SELF-CARE Instructions (If sedation given, give patient instructions): Care For Your Stitches (ED) Additional Instructions: Return to the emergency department with any new, worsening, or concerning symptoms, and in 5-7 days for removal of the stitches. Follow up with your primary care provider in 1-2 days. Is patient prescribed a controlled substance at d/c from ED?: No Referrals: Jose Raul Rosa MD [Primary Care Provider] - 1-2 days
[2023-02-20] MEDS ORDERED: TOPICAL SKIN ADHESIVE 1 EACH AMP TOPICAL ONE (13:09)
[2023-02-20 14:04] VITALS: BP 146/76; PULSE 62; TEMP 97.9
== END 2023-02-20 14:24 | disposition home or self-care (01) ==
LOC: EC 12:11
DX: S01.412A Laceration without foreign body of left cheek and temporomandibular area, initial encounter (principal); I10 Essential (primary) hypertension; E78.5 Hyperlipidemia, unspecified; F17.200 Nicotine dependence, unspecified, uncomplicated; Z79.82 Long term (current) use of aspirin; Z79.899 Other long term (current) drug therapy; X58.XXXA Exposure to other specified factors, initial encounter
CPT/HCPCS: 12011; 99282

== ENCOUNTER → 2025-03-04 | Outpatient (CLI) | payer MEDICARE ==
--- NOTE | 2025-03-04 12:34 | CTL ---
EXAMINATION TYPE: CT Low Dose Lung DATE OF EXAM: 03/04/2025 11:26 AM COMPARISON: 01/29/2024 CLINICAL INDICATION: Male, 69 years old with history of Z87.891 hx tobacco use, smoked 1 pack a day f or 20 years, quit in 2022, History of tobacco use. TECHNIQUE: Low Dose CT Lung Screening, Low dose computed tomography scan was performed through the est at 1 millimeter thick sections and reconstructed images in the coronal plane at 1 mm thick sectio ns. IV CONTRAST USED: None. SCREENING VISIT: First visit CT DLP: 103.70 mGycm, Automated exposure control for dose reduction was used. CT CTDI: 2.60 mGy FINDINGS: CT DIAGNOSTIC QUALITY: Satisfactory LUNG NODULES: Stable 4 mm pulmonary nodule within the mid left lung. No new nodules identified. LUNGS: COPD: Severity: Mild Fibrosis: Severity:None Lymph nodes: None Other findings: None RIGHT PLEURAL SPACE: Effusion: None Calcification: None Thickening: None Pneumothorax: None LEFT PLEURAL SPACE: Effusion: None Calcification: None Thickening: None Pneumothorax: None HEART: * Size within normal limits. * Extensive coronary artery calcifications noted. OTHER FINDINGS: Upper abdomen: No significant abnormality Bony thorax: Degenerative changes Supraclavicular region: No significant abnormalityOther: No significant abnormalityI IMPRESSION: 1. No clinically significant pulmonary nodules. 2. Mild emphysema. CT LUNG RAD AND CT CHEST RECOMMENDATION: Lung-Rad 2 Benign Appearance or Behavior: Continue annual sc reening with LDCT in 12 months. S Modifier (other clinically significant findings): [facility], , 03/04/2025 12:32 PM
== END | disposition home or self-care (01) ==
LOC: RADCTMAIN 09:12
PROVIDERS: ATTEND Internal Medicine
DX: Z12.2 Encounter for screening for malignant neoplasm of respiratory organs (principal); J43.9 Emphysema, unspecified; Z87.891 Personal history of nicotine dependence
CPT/HCPCS: 71271